=== PATIENT | male | born 1945 | race Caucasian/White ===

== ENCOUNTER 2016-12-19 10:20 | Observation (INO) | payer OTHER ==
[~2016-12-19] VITALS: Ht 172.7 cm; Wt 58.0 kg
[~2016-12-19 10:20] MED LIST: ASPI81TA45 PO; ATEN50 PO; CEFU1TAB43 PO; FOLI400T30 PO; LISI-360 PO; LORA1TAB PO; SINE25100 PO; TAB-TAB PO; VITA10002 PO; VITA20002 PO; [UNRECOGNIZED DRUG - CODE] PO
[2016-12-19 10:23] VITALS: BP 143/88; PULSE 129; RESP 20; TEMP 97.5; O2SAT 89
--- NOTE | 2016-12-19 11:12 | PD ---
HPI Chief Complaint: GI Complaint Time Seen by Provider: 11:11 Travel History International Travel<30 days: No Contact w/Intl Traveler<30days: No Traveled to known affect area: No History of Present Illness HPI 71-year-old male with history of Parkinson's, hypertension, on Coumadin for history of blood clots, presents to the emergency department for evaluation of nausea and vomiting 1 week. Patient has been unable to keep anything down. He has an appointment in 2 days with his primary care provider but has become so weak, his daughter did not want to wait. Patient has felt febrile and chills. He has had a cough with chest congestion. Denies any significant pain. Continues to dry heave constantly. Daughter informs me that he has been having difficulty swallowing which is being worked up outpatient. Patient has had diarrhea today. Nonbloody, no black tarry stools. PFSH Past Medical History Hx Anticoagulant Therapy: Yes Cancer: No Cardiovascular Problems: Yes Cerebrovascular Accident: Yes (TIA) Diabetes: No Endocrine: No Genitourinary: No Hiatal Hernia: No Hypertension: Yes Immune Disorder: No Musculoskeletal: No Neurologic: Yes Psychiatric: No Reproductive: No Respiratory: No Thyroid Disease: No Past Surgical History Abdominal Surgery: Yes (PARTIAL GASTRECTOMY / HERNIA REPAIR) Social History Alcohol Use: Yes (BEER DAILY) Tobacco Use: Yes (QUIT 30 YEARS) Substance Use: No Allergies-Medications (Allergen,Severity, Reaction): Coded Allergies: No Known Allergies (Verified , 12/19/16) Reported Meds & Prescriptions Reported Meds & Active Scripts Active Ceftin 500 Mg Tab (Cefuroxime Axetil) 500 Mg Tab 500 Mg PO Q12HR 30 Days Tenormin 50 Mg Tab (Atenolol) 50 Mg Tab 50 Mg PO DAILY 30 Days Reported Lisinopril 10 mg (Lisinopril) 10 Mg Tab 1 Tab PO DAILY Sinemet 25/100 (Carbidopa/Levodopa) 1 Tab Tab 1 Tab PO TID Lorazepam 1 Mg Tab 1 Mg PO BID Folate (Folic Acid) 400 Mcg Tab 400 Mcg PO DAILY Vitamin D-3 (Cholecalciferol) 2 000 Tab 2,000 Unit PO DAILY Vitamin B12 (Cyanocobalamin) 1,000 Mcg Tab 1,000 Mcg PO DAILY Fish Oil Extra Strength (Fish Oil) 435 Mg Cap 435 Mg PO Aspirin 81 mg EC Lo-Dose (Aspirin) 81 Mg Tab 81 Mg PO DAILY Multivitamin (Multivitamins) 1 Tab Tab 1 Tab PO DAILY Review of Systems Except as stated in HPI: all other systems reviewed are Neg Physical Exam Narrative GENERAL: Well-nourished male patient, appears ill but without distress. Patient is also tremulous. SKIN: Warm and dry. HEAD: Atraumatic. Normocephalic. EYES: Pupils equal and round. No scleral icterus. No injection or drainage. ENT: No nasal bleeding or discharge. Mucous membranes pink and moist. NECK: Trachea midline. No JVD. CARDIOVASCULAR: Tachycardic rate and rhythm. No murmur appreciated. RESPIRATORY: No accessory muscle use. Diminished, possibly due to poor inspiratory effort. Breath sounds equal bilaterally. GASTROINTESTINAL: Abdomen soft, non-tender, nondistended. Hepatic and splenic margins not palpable. MUSCULOSKELETAL: No obvious deformities. No clubbing. No cyanosis. No edema. NEUROLOGICAL: Awake and alert. No obvious cranial nerve deficits. Motor grossly within normal limits. Delayed responses, clear with simple answers. PSYCHIATRIC: Appropriate mood and affect; insight and judgment normal. Data Data Last Documented VS Vital Signs Date Time Temp Pulse Resp B/P Pulse Ox O2 Delivery O2 Flow Rate FiO2 12/19/16 10:23 97.5 129 20 143/88 89 Room Air Orders Complete Blood Count With Diff (12/19/16 11:09) Comprehensive Metabolic Panel (12/19/16 11:09) Lipase (12/19/16 11:09) Lactic Acid (12/19/16 11:09) Prothrombin Time / Inr (Pt) (12/19/16 11:09) Act Partial Throm Time (Ptt) (12/19/16 11:09) Urinalysis - C+S If Indicated (12/19/16 11:09) Electrocardiogram (12/19/16 11:09) Lactic Acid Sepsis Protocol (12/19/16 11:09) Ckmb (Isoenzyme) Profile (12/19/16 11:09) Troponin I (12/19/16 11:09) Influenzae A/B Antigen (12/19/16 11:09) Blood Culture (12/19/16 11:09) Chest, Single Ap (12/19/16 11:09) Ondansetron Odt (Zofran Odt) (12/19/16 11:15) Ct Abd/Pel W Iv Contrast(Rout) (12/19/16 11:57) Sodium Chlor 0.9% 1000 Ml Inj (Ns 1000 M (12/19/16 11:57) Sodium Chlor 0.9% 1000 Ml Inj (Ns 1000 M (12/19/16 11:57) Ct Pulmonary Angiogram (12/19/16 12:02) Labs Laboratory Tests Test 12/19/16 12:00 White Blood Count 10.5 TH/MM3 Red Blood Count 5.76 MIL/MM3 Hemoglobin 18.8 GM/DL Hematocrit 54.9 % Mean Corpuscular Volume 95.4 FL Mean Corpuscular Hemoglobin 32.6 PG Mean Corpuscular Hemoglobin 34.2 % Concent Red Cell Distribution Width 15.4 % Platelet Count 141 TH/MM3 Mean Platelet Volume 8.6 FL Neutrophils (%) (Auto) 86.2 % Lymphocytes (%) (Auto) 6.1 % Monocytes (%) (Auto) 6.4 % Eosinophils (%) (Auto) 0.8 % Basophils (%) (Auto) 0.5 % Neutrophils # (Auto) 9.0 TH/MM3 Lymphocytes # (Auto) 0.6 TH/MM3 Monocytes # (Auto) 0.7 TH/MM3 Eosinophils # (Auto) 0.1 TH/MM3 Basophils # (Auto) 0.1 TH/MM3 CBC Comment DIFF FINAL Differential Comment MDM Medical Decision Making Medical Screen Exam Complete: Yes Emergency Medical Condition: Yes Medical Record Reviewed: Yes Differential Diagnosis Pneumonia versus gastroenteritis versus electrolyte abnormality versus sepsis Narrative Course 71-year-old male presents to the emergency department for evaluation. Workup is initiated in triage ambulance. Once a medical bed becomes available, patient will be transferred and care assumed by that provider. Condition: Stable Trinh Cabrera Dec 19, 2016 11:12
[2016-12-19] MEDS ORDERED: ONDANSETRON ODT 4 MG TAB PO ONE (11:15)
[2016-12-19] MEDS ORDERED: SODIUM CHLOR 0.9% 1000 ML INJ 1,000 ML IV SCH ×3 (11:57→15:11)
--- NOTE | 2016-12-19 11:59 | PD ---
Physical Exam Time Seen by Provider: 11:59 Narrative Patient initially seen by provider in triage who initiated workup. 71-year-old male with a history of hypertension, Parkinson's, TIA, DVT on Xarelto presents to the emergency department for evaluation of vomiting for one week. The patient states that he has been unable to swallow food for several months now feeling as though the food gets stuck in his throat. States that he is able to keep fluids down and food the consistency of applesauce. States that for the past week though he has had nausea and vomiting anytime he tries to eat food. States that he has had a slightly productive cough and shortness of breath for the past 3 days. He denies any known events of aspiration or choking. He denies fever, chills, chest pain, abdominal pain, diarrhea, constipation, bloody stool, dysuria, lightheadedness or dizziness. Prior abdominal surgeries include gastrectomy secondary to PUD with subsequent hernia repair. PCP is Dr. Mehta with [facility]. No other complaints. GENERAL: Well-nourished and well-developed frail elderly male patient in no acute distress. SKIN: Warm and dry. HEAD: Normocephalic and atraumatic. EYES: No injection, drainage, or hyphema noted. PERRLA. EOMI. ENT: No nasal drainage noted. Oropharynx is clear. NECK: Supple and the trachea is midline. CARDIOVASCULAR: Regular rate and rhythm. RESPIRATORY: Breath sounds are equal bilaterally with no accessory muscle use, wheezing, rhonchi, or crackles. GASTROINTESTINAL: Epigastric midline surgical scar. Abdomen is soft, non-tender , and nondistended. MUSCULOSKELETAL: No obvious deformities, swelling, cyanosis, or ecchymosis is present throughout the upper and lower extremities. Patient has full range of motion without any signs of neurovascular compromise. NEUROLOGICAL: Awake, alert, and oriented. Normal speech and gait. Cranial nerves are grossly intact. Data Data Last Documented VS Vital Signs Date Time Temp Pulse Resp B/P Pulse Ox O2 Delivery O2 Flow Rate FiO2 12/19/16 14:21 109 20 180/99 99 Nasal Cannula 2 12/19/16 10:23 97.5 Orders Complete Blood Count With Diff (12/19/16 11:09) Comprehensive Metabolic Panel (12/19/16 11:09) Lipase (12/19/16 11:09) Prothrombin Time / Inr (Pt) (12/19/16 11:09) Act Partial Throm Time (Ptt) (12/19/16 11:09) Urinalysis - C+S If Indicated (12/19/16 11:09) Electrocardiogram (12/19/16 11:09) Lactic Acid Sepsis Protocol (12/19/16 11:09) Ckmb (Isoenzyme) Profile (12/19/16 11:09) Troponin I (12/19/16 11:09) Influenzae A/B Antigen (12/19/16 11:09) Blood Culture (12/19/16 11:09) Chest, Single Ap (12/19/16 11:09) Ondansetron Odt (Zofran Odt) (12/19/16 11:15) Ct Abd/Pel W Iv Contrast(Rout) (12/19/16 11:57) Sodium Chlor 0.9% 1000 Ml Inj (Ns 1000 M (12/19/16 11:57) Sodium Chlor 0.9% 1000 Ml Inj (Ns 1000 M (12/19/16 11:57) Ct Pulmonary Angiogram (12/19/16 12:02) Vancomycin Inj (Vancomycin Inj) (12/19/16 13:05) Piperacil-Tazo 4.5 Gm Premix (Zosyn 4.5 (12/19/16 13:05) Arterial Blood Gas (Abg) (12/19/16 ) Iohexol 350 Inj (Omnipaque 350 Inj) (12/19/16 14:14) Sodium Chlor 0.9% 1000 Ml Inj (Ns 1000 M (12/19/16 15:11) Admit Order (Ed Use Only) (12/19/16 15:28) Labs Laboratory Tests Test 12/19/16 12/19/16 12/19/16 12:00 12:20 13:40 White Blood Count 10.5 TH/MM3 Red Blood Count 5.76 MIL/MM3 Hemoglobin 18.8 GM/DL Hematocrit 54.9 % Mean Corpuscular Volume 95.4 FL Mean Corpuscular Hemoglobin 32.6 PG Mean Corpuscular Hemoglobin 34.2 % Concent Red Cell Distribution Width 15.4 % Platelet Count 141 TH/MM3 Mean Platelet Volume 8.6 FL Neutrophils (%) (Auto) 86.2 % Lymphocytes (%) (Auto) 6.1 % Monocytes (%) (Auto) 6.4 % Eosinophils (%) (Auto) 0.8 % Basophils (%) (Auto) 0.5 % Neutrophils # (Auto) 9.0 TH/MM3 Lymphocytes # (Auto) 0.6 TH/MM3 Monocytes # (Auto) 0.7 TH/MM3 Eosinophils # (Auto) 0.1 TH/MM3 Basophils # (Auto) 0.1 TH/MM3 CBC Comment DIFF FINAL Differential Comment Prothrombin Time 12.0 SEC Prothromb Time International 1.1 RATIO Ratio Activated Partial 33.1 SEC Thromboplast Time Sodium Level 131 MEQ/L Potassium Level 4.6 MEQ/L Chloride Level 96 MEQ/L Carbon Dioxide Level 23.1 MEQ/L Anion Gap 12 MEQ/L Blood Urea Nitrogen 6 MG/DL Creatinine 1.34 MG/DL Estimat Glomerular Filtration 53 ML/MIN Rate Random Glucose 113 MG/DL Lactic Acid Level 4.6 mmol/L Calcium Level 8.7 MG/DL Total Bilirubin 1.2 MG/DL Aspartate Amino Transf 57 U/L (AST/SGOT) Alanine Aminotransferase 21 U/L (ALT/SGPT) Alkaline Phosphatase 147 U/L Total Creatine Kinase 88 U/L Troponin I LESS THAN 0.02 NG/ML Total Protein 7.1 GM/DL Albumin 2.8 GM/DL Lipase 125 U/L Urine Color YELLOW Urine Turbidity CLEAR Urine pH 6.0 Urine Specific [place] 1.009 Urine Protein NEG mg/dL Urine Glucose (UA) NEG mg/dL Urine Ketones NEG mg/dL Urine Occult Blood NEG Urine Nitrite NEG Urine Bilirubin NEG Urine Urobilinogen LESS THAN 2.0 MG/DL Urine Leukocyte Esterase NEG Urine RBC LESS THAN 1 /hpf Urine WBC LESS THAN 1 /hpf Urine Hyaline Casts 13 /lpf Microscopic Urinalysis Comment CULT NOT INDICATED Blood Gas Puncture Site LT RADIAL Blood Gas Patient Temperature 98.6 Blood Gas HCO3 23 mmol/L Blood Gas Base Excess -0.5 mmol/L Blood Gas Oxygen Saturation 89 % Arterial Blood pH 7.46 Arterial Blood Partial 32 mmHg Pressure CO2 Arterial Blood Partial 62 mmHG Pressure O2 Arterial Blood Oxygen Content 21.7 Vol % Arterial Blood 1.7 % Carboxyhemoglobin Arterial Blood Methemoglobin 1.6 % Blood Gas Hemoglobin 17.3 G/DL Blood Gas Inspired Oxygen 21 % [facility] Medical Record Reviewed: Yes Supervised Visit with PRASHANT: No Differential Diagnosis Aspiration pneumonia versus PE versus colitis versus obstruction versus sepsis Narrative Course 71-year-old male presents to the emergency department for evaluation of vomiting for one week. Patient is afebrile. He is tachycardic with heart rate of 129 beats per minute. Since saturation is 89% on room air. Patient was initially seen by provider in triage who initiated labs and imaging. IV access is obtained, patient is placed on monitoring coordinator. EKG shows sinus tachycardia with first-degree AV block, no acute ST elevations or depressions. Patient is given a liter of fluid. CT of the abdomen and pelvis and CT pulmonary angiogram have been ordered and are pending. CBC shows slightly elevated hemoglobin and hematocrit, otherwise unremarkable. Coags are unremarkable. Urinalysis unremarkable. Influenza swab is negative. CMP shows mild renal insufficiency with a creatinine of 1.34, GFR 53, BUN 6. This is slightly elevated from the patient's baseline, last labs were one year ago. Total bilirubin is slightly elevated at 1.2, AST and alkaline phosphatase are slightly elevated as well. Troponin is less than 0.02. Lactic acid is elevated at 4.6 Chest x-ray is negative for any Abnormalities. CT of the abdomen and pelvis with IV contrast shows hepatic steatosis but is otherwise unremarkable for any acute abnormalities. CT pulmonary angiogram is negative for PE, shows small hiatal hernia, no acute abnormalities. Patient has been given 2 L of IV fluid with Zosyn and vancomycin empirically. Imaging is unremarkable. Lactic acidosis likely secondary to dehydration. Patient will be admitted for IV hydration. I discussed the case with my attending physician Dr. Bradley who is aware of the patients history, physical examination findings, and treatment plan. Physician Communication Physician Communication My attending physician Dr. Bradley spoke with Dr. Valadez [facility] who agrees to admit the patient under observation. Diagnosis Primary Impression: Lactic acidosis Additional Impressions: Dehydration, moderate Vomiting Qualified Code: R11.2 - Non-intractable vomiting with nausea, unspecified vomiting type Admitting Information Admitting Physician Requests: Observation Condition: Stable Elysia Rojo Dec 19, 2016 11:59
[2016-12-19 12:26] LABS: BASOPHIL # 0.1 TH/MM3 (0-0.2); BASOPHIL % 0.5 % (0.0-2.0); EOSINOPHIL # 0.1 TH/MM3 (0-0.4); EOSINOPHIL % 0.8 % (0.0-4.0); HEMATOCRIT 54.9 % (39.0-51.0); HEMO FLAGS DIFF FINAL; LYMPH % 6.1 % (9.0-44.0); LYMPHOCYTE # 0.6 TH/MM3 (1.0-4.8); MEAN CELL VOLUME 95.4 FL (80.0-100.0); MEAN CORPUSCULAR HEMOGLOBIN 32.6 PG (27.0-34.0); MEAN CORPUSCULAR HGB CONC 34.2 % (32.0-36.0); MONO % 6.4 % (0.0-8.0); NEUT % 86.2 % (16.0-70.0); PLATELET COUNT 141 TH/MM3 (150-450); RED BLOOD COUNT 5.76 MIL/MM3 (4.50-5.90); RED CELL DISTRIBUTION WIDTH 15.4 % (11.6-17.2); WHITE BLOOD COUNT 10.5 TH/MM3 (4.0-11.0)
[2016-12-19 12:36] LABS: APTT (PATIENT) 33.1 SEC (24.3-30.1); INTERNATIONAL NORMALIZED RATIO 1.1 RATIO
[2016-12-19 12:37] VITALS: BP 155/103; PULSE 110; RESP 20; O2SAT 95
[2016-12-19 12:42] LABS: BLOOD, URINE NEG (NEG); COMMENT (UR) CULT NOT INDICATED; CULTURE IF INDICATED CULT NOT INDICATED; GLUCOSE,URINE NEG (NEG); HYALINE CAST, URINE 13 /lpf (RARE); KETONE, URINE NEG (NEG); NITRITE,URINE NEG (NEG); URINE COLOR YELLOW (YELLW/STRAW)
[2016-12-19 12:47] LABS: ANION GAP 12 MEQ/L (5-15)
[2016-12-19 12:48] LABS: ALKALINE PHOSPHATASE 147 U/L (45-117); ALT (GPT) 21 U/L (12-78); AST (GOT) 57 U/L (15-37); BICARBONATE 23.1 MEQ/L (21.0-32.0); BLOOD UREA NITROGEN 6 MG/DL (7-18); CHLORIDE 96 MEQ/L (98-107); GLOMERULAR FILTRATION RATE 53 ML/MIN (>89); POTASSIUM 4.6 MEQ/L (3.5-5.1); SODIUM (NA) 131 MEQ/L (136-145); TOTAL BILIRUBIN ADULT 1.2 MG/DL (0.2-1.0)
[2016-12-19 12:57] LABS: CREATINE KINASE 88 U/L (39-308)
[2016-12-19] MEDS ORDERED: HYDR10TA23 PO (13:02)
[2016-12-19] MEDS ORDERED: XARE15TA PO (13:02)
[2016-12-19] MEDS ORDERED: CARB25TA9 PO (13:02)
[2016-12-19] MEDS ORDERED: CHOL100025 PO (13:02)
[2016-12-19] MEDS ORDERED: ATEN100T PO (13:02)
[2016-12-19] MEDS ORDERED: AMLO5TAB2 PO (13:02)
[2016-12-19] MEDS ORDERED: VITA10002 PO (13:02)
[2016-12-19] MEDS ORDERED: FOLI400T PO (13:02)
[2016-12-19] MEDS ORDERED: POTA-163 PO (13:02)
[2016-12-19] MEDS ORDERED: LOSA25TA PO (13:02)
[2016-12-19] MEDS ORDERED: VANCOMYCIN INJ 1,000 MG in SODIUM CHLOR 0.9% 250 ML INJ 250 ML IV STA (13:05)
[2016-12-19] MEDS ORDERED: PIPERACIL-TAZO 4.5 GM PREMIX 100 ML IV STA (13:05)
--- NOTE | 2016-12-19 13:31 | RADRPT ---
EXAM DATE/TIME: 12/19/2016 13:02 [facility] COMPARISON: CHEST SINGLE AP, January 08, 2016, 15:56. INDICATIONS : Upper chest pains mid sternal, with nausea and vomiting. Dysphagia. MEDICAL HISTORY : None. SURGICAL HISTORY : None. ENCOUNTER: Initial ACUITY: 3 days PAIN SCORE: 6/10 LOCATION: Bilateral chest FINDINGS: A single view of the chest demonstrates the lungs to be symmetrically aerated without evidence of mas s, infiltrate or effusion. The cardiomediastinal contours are unremarkable. Osseous structures are intact. CONCLUSION: No acute disease. Salvador Eric Jr., MD on December 19, 2016 at 13:29 Board Certified Radiologist. This report was verified electronically.
[2016-12-19 13:48] LABS: BLOOD GAS BASE EXCESS -0.5 mmol/L (-2-2); BLOOD GAS CARBOXYHEMOGLOBIN 1.7 % (0-4); BLOOD GAS HCO3 23 mmol/L (22-26); BLOOD GAS METHEMOGLOBIN 1.6 % (0-2); BLOOD GAS O2 HGB SATURATION 89 % (90-100); BLOOD GAS OXYGEN CONTENT 21.7 Vol % (12.0-20.0); BLOOD GAS PCO2 32 mmHg (38-42); BLOOD GAS PO2 62 mmHG (61-120); BLOOD GAS TOTAL HGB 17.3 G/DL (12.0-16.0); TEMP CORR TO 98.6
[2016-12-19 13:49] LABS: CRITICAL VALUE YES; DRAW SITE LT RADIAL; FIO2 21 %; NUMBER OF ARTERIAL PUNCTURES 1; STAT YES; ULNAR PULSE PRESENT
[2016-12-19 14:12] LABS: LACTIC ACID GHOST NOT REPORTABLE
[2016-12-19] MEDS ORDERED: IOHEXOL 350 MG/ML 10 ML VIAL (for RAD DIAG) IV ONE (14:14)
[2016-12-19 14:21] VITALS: BP 180/99; PULSE 109; RESP 20; O2SAT 99
--- NOTE | 2016-12-19 14:41 | RADRPT ---
EXAM DATE/TIME: 12/19/2016 13:52 [facility] COMPARISON: No previous studies available for comparison. INDICATIONS : Abdomen pain and vomiting. IV CONTRAST: 75 cc Omnipaque 350 (iohexol) IV ; Cumulative dose for multiple exams. ORAL CONTRAST: No oral contrast ingested. RADIATION DOSE: 7.75 CTDIvol (mGy) MEDICAL HISTORY : Parkinson's. Hypertension. SURGICAL HISTORY : None. ENCOUNTER: Initial ACUITY: 3 days PAIN SCALE: 5/10 LOCATION: abdomen TECHNIQUE: Volumetric scanning of the abdomen and pelvis was performed. Using automated exposure control and ad justment of the mA and/or kV according to patient size, radiation dose was kept as low as reasonably achievable to obtain optimal diagnostic quality images. FINDINGS: LOWER LUNGS: The visualized lower lungs are clear. LIVER: Homogeneous low in density without lesion. There is no dilation of the biliary tree. No calcified g allstones. SPLEEN: Normal size without lesion. Scattered granulomatous calcifications. PANCREAS: Within normal limits. KIDNEYS: Normal in size and shape. There is no mass, stone or hydronephrosis. Tiny cysts bilaterally. ADRENAL GLANDS: Within normal limits. VASCULAR: There is no aortic aneurysm. BOWEL/MESENTERY: Surgical clips associated with the stomach. The stomach, small bowel, and colon demonstrate no acute abnormality. There is no free intraperitoneal air or fluid. ABDOMINAL WALL: Within normal limits. RETROPERITONEUM: There is no lymphadenopathy. BLADDER: No wall thickening or mass. REPRODUCTIVE: Within normal limits. INGUINAL: There is no lymphadenopathy or hernia. Prior left inguinal hernia repair utilizing mesh. MUSCULOSKELETAL: Scoliotic curvature. CONCLUSION: 1. No acute abnormality. 2. Hepatic steatosis. Salvador Eric Jr., MD on December 19, 2016 at 14:27 Board Certified Radiologist. This report was verified electronically.
--- NOTE | 2016-12-19 14:58 | RADRPT ---
EXAM DATE/TIME: 12/19/2016 14:14 [facility] COMPARISON: CHEST SINGLE AP, December 19, 2016, 13:02. INDICATIONS : Evaluate for emboli. IV CONTRAST: 75 cc Omnipaque 350 (iohexol) IV ; Cumulative dose for multiple exams. RADIATION DOSE: 7.4 CTDIvol (mGy) MEDICAL HISTORY : Deep venous thrombosis. Parkinsons. Hypertension. SURGICAL HISTORY : None. ENCOUNTER: Initial ACUITY: 1 day PAIN SCALE: 5/10 LOCATION: Bilateral chest TECHNIQUE: Volumetric scanning of the chest was performed using a pulmonary embolism protocol MIP images were re constructed. Using automated exposure control and adjustment of the mA and/or kV according to patien t size, radiation dose was kept as low as reasonably achievable to obtain optimal diagnostic quality images. FINDINGS: PULMONARY ARTERIES: No filling defects are seen in the pulmonary arteries through the segmental level. LUNGS: There is no consolidation or pneumothorax . No concerning pulmonary nodule is visualized. PLEURAE: There is no pleural thickening or pleural effusion. MEDIASTINUM: There is good visualization of the great vessels of the middle mediastinum. No evidence of mediastin al or hilar adenopathy/mass. Surgical clips around the fundus and body of the stomach extending into the distal mediastinum with a small hiatal hernia. MUSCULOSKELETAL: Within normal limits for patient age. MISCELLANEOUS: The visualized upper abdominal organs demonstrate no acute abnormality. CONCLUSION: Negative for pulmonary embolization. No acute cardiopulmonary process. Evidence of previous surgery in the upper abdomen arou nd the stomach and in the caudad lower mediastinum with a small hiatal hernia Chico Reeder MD on December 19, 2016 at 14:52 Board Certified Radiologist. This report was verified electronically.
[2016-12-19] MEDS ORDERED: ACETAMINOPHEN 325 MG TAB PO PRN ×2 (15:30)
[2016-12-19] MEDS ORDERED: SODIUM CHLORIDE 0.9% FLUSH 5 ML FLUSH FLUSH PRN (15:30)
[2016-12-19] MEDS ORDERED: NALOXONE HCL 0.4 MG/ML AMP IV PRN (15:30)
--- NOTE | 2016-12-19 15:32 | HHI.HP ---
[facility]ician Juan Carlos Bullock MD Admission Diagnosis lactic acidosis, hypovolemia Diagnoses: (1) Dehydration, moderate (2) Lactic acidosis (3) HTN (hypertension) (4) Parkinson disease (5) Essential tremor (6) Intractable nausea and vomiting (7) Dysphagia Chief Complaint: Intractable nausea and vomiting along with dysphagia of solid food Travel History International Travel<30 Days: No Contact w/Intl Traveler <30 Da: No Traveled to Known Affected Are: No History of Present Illness 71-year-old male with a history of hypertension, Parkinson disease, to the ED for evaluation of 1 week history of mostly emesis with nausea along with decreased appetite, as well as dysphagia of solid food over the past 3 months without any chest pain. However patient complains of shortness of breath. Patient reported also a history of diarrhea on and off however resolved over the past 2 days. He has had significant weight loss along with worsening weakness. Apparently, patient has an appointment with his PCP in 2 days but was feeling too weak, he was then brought to the ED by his daughter however wasn't present during this encounter. In the EMR it's noted that patient mentioned about febrile episodes but his vitals currently at stable. He was treated with Zosyn and vancomycin IV 1. CT abdomen/pelvis negative and a CTA was negative for PE. He denies any GI bleed. Review of Systems Other Other 12 systems reviewed and are negative except for the one mentioned in history of present illness Past Family Social History Past Medical History Hypertension, TIA x3 Parkinson's disease Past Surgical History Partial gastrectomy/hernia repair Allergies: Coded Allergies: No Known Allergies (Verified , 12/19/16) Physical Exam Vital Signs Vital Signs Date Time Temp Pulse Resp B/P Pulse Ox O2 Delivery O2 Flow Rate FiO2 12/19/16 14:21 109 20 180/99 99 Nasal Cannula 2 12/19/16 12:37 110 20 155/103 95 Room Air 12/19/16 10:23 97.5 129 20 143/88 89 Room Air Physical Exam GENERAL: This is a well-nourished, well-developed patient, in no apparent distress with essential tremors. SKIN: No rashes, ecchymoses or lesions. Cool and dry. HEAD: Atraumatic. Normocephalic. No temporal or scalp tenderness. EYES: Pupils equal round and reactive. Extraocular motions intact. No scleral icterus. No injection or drainage. ENT: Nose without bleeding, purulent drainage or septal hematoma. Throat without erythema, tonsillar hypertrophy or exudate. Uvula midline. Airway patent. NECK: Trachea midline. No JVD or lymphadenopathy. Supple, nontender, no meningeal signs. CARDIOVASCULAR: Regular rate and rhythm without murmurs, gallops, or rubs. RESPIRATORY: Clear to auscultation. Breath sounds equal bilaterally. No wheezes , rales, or rhonchi. GASTROINTESTINAL: Abdomen soft, non-tender, nondistended. No hepato-splenomegaly , or palpable masses. No guarding. MUSCULOSKELETAL: Extremities without clubbing, cyanosis, or edema. No joint tenderness, effusion, or edema noted. No calf tenderness. Negative Homans sign bilaterally. NEUROLOGICAL: Awake and alert. Cranial nerves II through XII intact. Motor and sensory grossly within normal limits. Five out of 5 muscle strength in all muscle groups. Normal speech. Laboratory Laboratory Tests Test 12/19/16 12/19/16 12/19/16 12:00 12:20 13:40 White Blood Count 10.5 Red Blood Count 5.76 Hemoglobin 18.8 Hematocrit 54.9 Mean Corpuscular Volume 95.4 Mean Corpuscular Hemoglobin 32.6 Mean Corpuscular Hemoglobin 34.2 Concent Red Cell Distribution Width 15.4 Platelet Count 141 Mean Platelet Volume 8.6 Neutrophils (%) (Auto) 86.2 Lymphocytes (%) (Auto) 6.1 Monocytes (%) (Auto) 6.4 Eosinophils (%) (Auto) 0.8 Basophils (%) (Auto) 0.5 Neutrophils # (Auto) 9.0 Lymphocytes # (Auto) 0.6 Monocytes # (Auto) 0.7 Eosinophils # (Auto) 0.1 Basophils # (Auto) 0.1 CBC Comment DIFF FINAL Differential Comment Prothrombin Time 12.0 Prothromb Time International 1.1 Ratio Activated Partial 33.1 Thromboplast Time Sodium Level 131 Potassium Level 4.6 Chloride Level 96 Carbon Dioxide Level 23.1 Anion Gap 12 Blood Urea Nitrogen 6 Creatinine 1.34 Estimat Glomerular Filtration 53 Rate Random Glucose 113 Lactic Acid Level 4.6 Calcium Level 8.7 Total Bilirubin 1.2 Aspartate Amino Transf 57 (AST/SGOT) Alanine Aminotransferase 21 (ALT/SGPT) Alkaline Phosphatase 147 Total Creatine Kinase 88 Troponin I LESS THAN 0.02 Total Protein 7.1 Albumin 2.8 Lipase 125 Urine Color YELLOW Urine Turbidity CLEAR Urine pH 6.0 Urine Specific [place] 1.009 Urine Protein NEG Urine Glucose (UA) NEG Urine Ketones NEG Urine Occult Blood NEG Urine Nitrite NEG Urine Bilirubin NEG Urine Urobilinogen LESS THAN 2.0 Urine Leukocyte Esterase NEG Urine RBC LESS THAN 1 Urine WBC LESS THAN 1 Urine Hyaline Casts 13 Microscopic Urinalysis Comment CULT NOT INDICATED Blood Gas Puncture Site LT RADIAL Blood Gas Patient Temperature 98.6 Blood Gas HCO3 23 Blood Gas Base Excess -0.5 Blood Gas Oxygen Saturation 89 Arterial Blood pH 7.46 Arterial Blood Partial 32 Pressure CO2 Arterial Blood Partial 62 Pressure O2 Arterial Blood Oxygen Content 21.7 Arterial Blood 1.7 Carboxyhemoglobin Arterial Blood Methemoglobin 1.6 Blood Gas Hemoglobin 17.3 Blood Gas Inspired Oxygen 21 Date/Time Procedure Status Source Growth 12/19/16 12:10 Aerobic Blood Culture Received Blood Peripheral Pending 12/19/16 12:10 Anaerobic Blood Culture Received Blood Peripheral Pending 12/19/16 12:00 Influenza Types A,B Antigen (LUISA) - Final Complete Nasal Washing NEGATIVE FOR FLU A AND B ANTIGEN.... Result Diagram: 12/19/16 1200 12/19/[address] Angiography 12/19/16 1202 Signed Impressions: Service Date/Time: Monday, December 19, 2016 14:14 - CONCLUSION: Negative for pulmonary embolization. No acute cardiopulmonary process. Evidence of previous surgery in the upper abdomen around the stomach and in the caudad lower mediastinum with a small hiatal hernia Chico Reeder MD Abdomen/Pelvis CT 12/19/16 1157 Signed Impressions: Service Date/Time: Monday, December 19, 2016 13:52 - CONCLUSION: 1. No acute abnormality. 2. Hepatic steatosis. Salvador Eric Jr., MD Chest X-Ray 12/19/16 1109 Signed Impressions: Service Date/Time: Monday, December 19, 2016 13:02 - CONCLUSION: No acute disease. Salvador Eric Jr., MD Assessment and Plan Problem List: (1) Dysphagia ICD Code: R13.10 Status: Acute (2) Intractable nausea and vomiting ICD Code: R11.2 Status: Acute (3) Dehydration, moderate ICD Code: E86.0 Status: Acute (4) Lactic acidosis ICD Code: E87.2 Status: Acute (5) Parkinson disease ICD Code: G20 Status: Acute Assessment and Plan 71-year-old male with 1-Dysphagia of solid food: Likely secondary to Parkinson's however will check upper GI with small bowel follow-through and consult speech therapy for swallow eval. CT abdomen/pelvis noted and reviewed by me with only finding of Hiatal hernia otherwise negative. Chest x-ray noted and reviewed by me without any cardiac pulmonary disease. Keep nothing by mouth, IV fluid hydration. Patient will likely need GI consultation based on upper GI with small bowel follow- through. Eventually a need for PEG tube placement will have to be discussed with patient 2-Intractable emesis and nausea: May be secondary to gastroenteritis however patient denies any diarrheal episodes 2 days despite reporting on and off diarrhea. Check lipase, stool for ova and parasite, C. difficile PCR. Conservative treatment with IV fluid, anti-emetics. Advance diet as tolerated 3-Dehydration: Start gentle IV fluid hydration 4-Lactic acidosis: Patient treated in ED with IV antibiotic Zosyn and vancomycin 1, however acidosis appeared to be secondary to dehydration therefore will hold on continue antibiotics. Repeat lab 5-Hemoconcentration: Secondary to dehydration, monitor BUN and creatinine 6-Mildly elevated liver enzyme AST: Monitor LFTs 7-Parkinson's disease: Resume outpatient medications 8-Benign labile hypertension: Resume atenolol 100 mg daily now hydralazine 10 mg twice a day. Will resume Norvasc and Cozaar in a.m. 9-History of DVT: Resume Xarelto 10-GI prophylaxis: PPI Desmond Valadez MD Dec 19, 2016 15:32
[2016-12-19] MEDS ORDERED: MAGNESIUM CITRATE SOLN 300 ML BTL PO ONE ×2 (17:00→22:00)
[2016-12-19] MEDS: ATENOLOL 100 MG TAB PO SCH (17:01)
[2016-12-19 18:25] VITALS: BP 174/109; PULSE 73; RESP 20; O2SAT 95
[2016-12-19] MEDS: BISACODYL EC 5 MG TABEC PO SCH ×2 (18:27→22:10)
[2016-12-19] MEDS: SODIUM CHLOR 0.9% 1000 ML INJ 1,000 ML IV SCH (19:12)
[2016-12-19 20:03] VITALS: BP 169/123; PULSE 68; RESP 18; O2SAT 99
[2016-12-19] MEDS ORDERED: cloNIDine HCL 0.1 MG TAB PO PRN (20:15)
[2016-12-19 20:57] LABS: C. DIFF EPI 027 PRESUMPTIVE NEGATIVE (NEGATIVE); C. DIFF TOXIN PCR NEGATIVE (NEGATIVE)
[2016-12-19] MEDS: amLODIPine BESYLATE 5 MG TAB PO SCH (20:59)
[2016-12-19] MEDS: SODIUM CHLORIDE 0.9% FLUSH 5 ML FLUSH FLUSH SCH (21:00)
[2016-12-19 21:07] VITALS: BP 148/91; PULSE 65; RESP 16; O2SAT 98
[2016-12-19] MEDS: CARBIDOPA/LEVODOPA 25 MG/100 MG TAB PO SCH (22:10)
[2016-12-19] MEDS: hydrALAZINE HCL 10 MG TAB PO SCH (22:10)
[2016-12-20 01:21] VITALS: BP 117/64; PULSE 97; RESP 18; TEMP 98; O2SAT 97
[2016-12-20] MEDS: SODIUM CHLOR 0.9% 1000 ML INJ 1,000 ML IV SCH (01:29)
[2016-12-20 03:42] VITALS: BP 144/66; PULSE 88; RESP 18; TEMP 98; O2SAT 97
[2016-12-20] MEDS: CARBIDOPA/LEVODOPA 25 MG/100 MG TAB PO SCH ×2 (05:27→14:45)
[2016-12-20 07:38] LABS: AUTOMATED NEUTROPHIL # 3.3 TH/MM3 (1.8-7.7); BASOPHIL # 0.1 TH/MM3 (0-0.2); BASOPHIL % 1.2 % (0.0-2.0); EOSINOPHIL # 0.2 TH/MM3 (0-0.4); EOSINOPHIL % 3.6 % (0.0-4.0); HEMATOCRIT 46.2 % (39.0-51.0); HEMO FLAGS DIFF FINAL; LYMPH % 19.5 % (9.0-44.0); MEAN CORPUSCULAR HGB CONC 33.6 % (32.0-36.0); MONO % 13.4 % (0.0-8.0); NEUT % 62.3 % (16.0-70.0); PLATELET COUNT 102 TH/MM3 (150-450); RED BLOOD COUNT 4.72 MIL/MM3 (4.50-5.90); RED CELL DISTRIBUTION WIDTH 15.3 % (11.6-17.2); WHITE BLOOD COUNT 5.4 TH/MM3 (4.0-11.0)
[2016-12-20 08:06] VITALS: BP 142/84; PULSE 53; RESP 19; TEMP 97.7; O2SAT 97
[2016-12-20 08:07] LABS: ALKALINE PHOSPHATASE 110 U/L (45-117); ALT (GPT) 13 U/L (12-78); ANION GAP 11 MEQ/L (5-15); AST (GOT) 44 U/L (15-37); BICARBONATE 24.3 MEQ/L (21.0-32.0); BLOOD UREA NITROGEN 4 MG/DL (7-18); CHLORIDE 105 MEQ/L (98-107); GLOMERULAR FILTRATION RATE 83 ML/MIN (>89); POTASSIUM 3.1 MEQ/L (3.5-5.1); SODIUM (NA) 140 MEQ/L (136-145); TOTAL BILIRUBIN ADULT 0.9 MG/DL (0.2-1.0)
[2016-12-20] MEDS ORDERED: RIVAROXABAN 15 MG TAB PO SCH (09:00)
[2016-12-20] MEDS: SODIUM CHLORIDE 0.9% FLUSH 5 ML FLUSH FLUSH SCH (09:00)
[2016-12-20] MEDS ORDERED: PANTOPRAZOLE SODIUM 40 MG VIAL IV PUSH SCH (09:00)
[2016-12-20] MEDS: hydrALAZINE HCL 10 MG TAB PO SCH (09:00)
--- NOTE | 2016-12-20 10:28 | HHI.PR ---
Subjective Remarks Follow-up dysphagia of solid food/intractable nausea and vomiting 12/20/16-patient seen and examined; he reports improvement of nausea and emesis and denies any abdominal pain since admission. Vital currently stable. Objective Vitals Vital Signs Date Time Temp Pulse Resp B/P Pulse Ox O2 Delivery O2 Flow Rate FiO2 12/20/16 08:06 97.7 53 19 142/84 97 12/20/16 03:42 98.0 88 18 144/66 97 12/20/16 01:21 98.0 97 18 117/64 97 12/19/16 21:07 65 16 148/91 98 Nasal Cannula 2 12/19/16 20:03 68 18 169/123 99 Nasal Cannula 2 12/19/16 18:25 73 20 174/109 95 Nasal Cannula 2 12/19/16 14:21 109 20 180/99 99 Nasal Cannula 2 12/19/16 14:21 99 Nasal Cannula 2.00 12/19/16 12:37 110 20 155/103 95 Room Air I/O 12/19/16 12/19/16 12/19/16 12/20/16 12/20/16 12/20/16 07:00 15:00 23:00 07:00 15:00 23:00 Intake Total 240 ml Balance 240 ml Intake Oral 240 ml # Voids 1 2 # Bowel Movements 1 3 Result Diagram: 12/20/16 0612 12/20/[address] Angiography 12/19/16 1202 Signed Impressions: Service Date/Time: Monday, December 19, 2016 14:14 - CONCLUSION: Negative for pulmonary embolization. No acute cardiopulmonary process. Evidence of previous surgery in the upper abdomen around the stomach and in the caudad lower mediastinum with a small hiatal hernia Chico Reeder MD Abdomen/Pelvis CT 12/19/16 1157 Signed Impressions: Service Date/Time: Monday, December 19, 2016 13:52 - CONCLUSION: 1. No acute abnormality. 2. Hepatic steatosis. Salvador Eric Jr., MD Chest X-Ray 12/19/16 1109 Signed Impressions: Service Date/Time: Monday, December 19, 2016 13:02 - CONCLUSION: No acute disease. Salvador Eric Jr., MD Objective Remarks GENERAL: NAD SKIN: Warm and dry. HEAD: Normocephalic. EYES: No scleral icterus. No injection or drainage. NECK: Supple, trachea midline. No JVD or lymphadenopathy. CARDIOVASCULAR: Regular rate and rhythm without murmurs, gallops, or rubs. RESPIRATORY: Breath sounds equal bilaterally. No accessory muscle use. GASTROINTESTINAL: Abdomen soft, non-tender, nondistended. MUSCULOSKELETAL: No cyanosis, or edema. BACK: Nontender without obvious deformity. No CVA tenderness. A/P Problem List: (1) Dysphagia ICD Code: R13.10 Status: Acute (2) Intractable nausea and vomiting ICD Code: R11.2 Status: Acute (3) Dehydration, moderate ICD Code: E86.0 Status: Acute (4) Lactic acidosis ICD Code: E87.2 Status: Acute (5) Parkinson disease ICD Code: G20 Status: Acute Assessment and Plan 71-year-old male with 1-Dysphagia of solid food: Likely secondary to Parkinson's upper GI with small bowel follow-through pending this morning as well as speech therapy for swallow eval. CT abdomen/pelvis with only finding of Hiatal hernia otherwise negative. Chest x-ray without any cardiac pulmonary disease. Keep nothing by mouth, IV fluid hydration. Patient will likely need GI consultation based on upper GI with small bowel follow-through. Eventually a need for PEG tube placement in the future will have to be discussed with patient 2-Intractable emesis and nausea: Now resolved ;May be secondary to gastroenteritis however patient denies any diarrheal episodes 2 days despite reporting on and off diarrhea. lipase within normal limits, stool for ova and parasite pending, C. difficile PCR negative. Conservative treatment with IV fluid, anti-emetics. Advance diet as tolerated 3-Dehydration: Improving with gentle IV fluid hydration 4-Lactic acidosis: Patient treated in ED with IV antibiotic Zosyn and vancomycin 1, however acidosis appeared to be secondary to dehydration therefore will hold on continue antibiotics. Repeat lactic acid 2.3 5-Hemoconcentration: Secondary to dehydration, now resolved. 6-Mildly elevated liver enzyme AST: Monitor LFTs 7-Parkinson's disease: Continue outpatient medications. PT consult to treat and eval 8-Benign labile hypertension: Improving, continue atenolol 100 mg daily now hydralazine 10 mg twice a day. Continue to hold Norvasc and Cozaar . 9-History of DVT: On Xarelto 10-GI prophylaxis: PPI 11-Hypokalemia: Give potassium 60 mEq 1 now and monitor Pontey,Desmond MD Dec 20, 2016 10:27
[2016-12-20] MEDS ORDERED: POTASSIUM CL 40 MEQ/30 ML LIQ UDC PO ONE (10:30)
--- NOTE | 2016-12-20 13:42 | RADRPT ---
EXAM DATE/TIME: 12/20/2016 09:24 [facility] COMPARISON: No previous studies available for comparison. INDICATIONS : Obstruction, vomiting. FLUORO TIME: 1.4 minutes IMAGE COUNT: CONTRAST: Liquid E-Z Paque Barium Sulfate (60% w/v, 41% w/w) IMAGING TIME(S): 15 min, 30 min, 45 min, 1 hr, 1.5 hrs2 hr MEDICAL HISTORY : Ulcers. SURGICAL HISTORY : part of stomach removed years ago because of ulcers ENCOUNTER: Initial ACUITY: 1 day PAIN SCORE: 0/10 LOCATION: Bilateral abdomen FINDINGS: Surgical clips are noted in place in the upper abdomen. Esophagus is normal motility and structure ab domen small hiatal hernia and clips in place around the GE junction. Partial gastric resection of the body and antrum with anastomosis to the duodenum which is open and patent with no evidence of obstru ction or ulceration. Contrast is followed through the small bowel into the colon with Spot filming of the terminal which is normal an appendix visualized is normal. CONCLUSION: Prior surgery GE junction and stomach with partial gastric resection. Otherwise normal with no eviden ce of intrinsic or extrinsic lesion and small bowel is normal Chico Reeder MD on December 20, 2016 at 13:39 Board Certified Radiologist. This report was verified electronically.
--- NOTE | 2016-12-20 14:21 | HHI.FF ---
Face to Face Verification Diagnosis: (1) Parkinson disease (2) Essential tremor (3) Lactic acidosis (4) Dysphagia (5) Intractable nausea and vomiting Physical Therapy Order: Evaluate and Treat Home Health Nursing Order: Signs/symptoms of disease process I have seen patient Joann Le on 12/20/16. My clinical findings support the need for the requested home health care services because: Deconditioned w/ increased weakness I certify that my clinical findings support that this patient is homebound because: Poor cardiac reserve Desmond Valadez MD Dec 20, 2016 14:21
--- NOTE | 2016-12-20 14:23 | HHI.PR ---
Addendum to Inpatient Note Addendum Reason: Additional Documentation Additional Information Upper GI will small bowel follow-through was completed and read by me with finding of Prior surgery GE junction and stomach with partial gastric resection. Otherwise normal with no evidence of intrinsic or extrinsic lesion and small bowel is normal. Therefore patient will be discharged home with home health care on a full liquid diet which can subsequently be advanced. Discharge patient to home Condition on discharge: Improved Full liquid diet----->Regular Diet as tolerated Ad Paloma activity Rx written:none Follow-up with primary care physician in 1 week Desmond Valadez MD Dec 20, 2016 14:23
[2016-12-20] MEDS: amLODIPine BESYLATE 5 MG TAB PO SCH (14:45)
[2016-12-20] MEDS: ATENOLOL 100 MG TAB PO SCH (14:45)
[2016-12-20 15:44] VITALS: BP 148/81; PULSE 62; RESP 18; TEMP 97.7; O2SAT 96
--- NOTE | 2016-12-20 17:12 | EKG ---
Date Performed: 12/19/2016 Time Performed: 11:56:25 PTAGE: 71 years EKG: SINUS TACHYCARDIA WITH FIRST DEGREE AV BLOCK LOW QRS VOLTAGE IN EXTREMITY LEADS SEPTAL MYOC ARDIAL INFARCTION Baseline artifact. When compared to previous tracing, the patient is now Tachycardi c. ABNORMAL ECG PREVIOUS TRACING : 01/08/2016 15.17 DOCTOR: Lynda Jacob Interpretating Date/Time 12/20/2016 17:10:13
--- NOTE | 2016-12-20 17:12 | EKG ---
Date Performed: 12/19/2016 Time Performed: 15:11:58 PTAGE: 71 years EKG: SINUS TACHYCARDIA LOW QRS VOLTAGE IN EXTREMITY LEADS SEPTAL MYOCARDIAL INFARCTION Baseline artifact. Since previous tracing, no significant change noted ABNORMAL ECG PREVIOUS TRACING : 12/19/2016 11.56.25 DOCTOR: Lynda Jacob Interpretating Date/Time 12/20/2016 17:11:06
== END 2016-12-20 19:37 | disposition home or self-care (01) ==
LOC: NEPE 10:20 → NEDA 15:30 → NEPHCDU 21:22
PROVIDERS: ADMIT Hospitalist; ATTEND Hospitalist
DX: R13.10 Dysphagia, unspecified (principal); E86.0 Dehydration; E87.2 Acidosis; E86.1 Hypovolemia; E87.6 Hypokalemia; I10 Essential (primary) hypertension; R94.31 Abnormal electrocardiogram [ECG] [EKG]; G20 Parkinson's disease; G25.0 Essential tremor; I44.0 Atrioventricular block, first degree; N28.9 Disorder of kidney and ureter, unspecified; K76.0 Fatty (change of) liver, not elsewhere classified; K44.9 Diaphragmatic hernia without obstruction or gangrene; Z72.0 Tobacco use; Z86.718 Personal history of other venous thrombosis and embolism; Z86.73 Personal history of transient ischemic attack (TIA), and cerebral infarction without residual deficits; Z79.01 Long term (current) use of anticoagulants; Z87.11 Personal history of peptic ulcer disease; Z90.3 Acquired absence of stomach [part of]
CPT/HCPCS: 36600; 71010; 71275; 74177; 74249; 80053; 81001; 82550; 82805; 83605; 83690; 84484; 85025; 85610; 85730; 87040; 87328; 87493; 87506; 87804; 92610; 93005; 96361; 96365; 96367; 97163; 99285; C9113; G0378; G8987; G8988; G8996; G8997; G8998; J2543; J3370; J7030; J7050; Q9967; 87329

== ENCOUNTER 2017-02-03 23:23 | Inpatient (IN) | payer OTHER, MEDICARE ==
[~2017-02-03] VITALS: Ht 172.7 cm; Wt 57.8 kg
[~2017-02-03 23:23] MED LIST changes: +AMLO5TAB2 PO; -ASPI81TA45 PO; +ATEN100T PO; -ATEN50 PO; +CARB25TA9 PO; -CEFU1TAB43 PO; +CHOL100025 PO; +FOLI400T PO; -FOLI400T30 PO; +HYDR10TA23 PO; -LISI-360 PO; -LORA1TAB PO; +LOSA25TA PO; +POTA-163 PO; -SINE25100 PO; -TAB-TAB PO; -VITA20002 PO; +XARE15TA PO; -[UNRECOGNIZED DRUG - CODE] PO
[2017-02-03 23:31] VITALS: BP 178/125; PULSE 138; RESP 18; TEMP 97.3; O2SAT 94
[2017-02-04] VITALS (7 sets, daily range): BP systolic 155–216; BP diastolic 87–129; PULSE 66–142; RESP 16–20; TEMP 97.5–98.1; O2SAT 92–100
[2017-02-04] MEDS ORDERED: SODIUM CHLOR 0.9% 1000 ML INJ 1,000 ML IV SCH (00:12)
[2017-02-04] MEDS ORDERED: ONDANSETRON HCL 4 MG/2 ML VIAL IVP ONE (00:15)
[2017-02-04] MEDS ORDERED: SODIUM CHLORIDE 0.9% FLUSH 5 ML FLUSH IVF PRN (00:15)
--- NOTE | 2017-02-04 00:17 | PD ---
HPI Chief Complaint: GI Complaint Time Seen by Provider: 00:05 Travel History International Travel<30 days: No Contact w/Intl Traveler<30days: No Traveled to known affect area: No History of Present Illness HPI 72-year-old male with history of Parkinson's disease, hypertension, hyperlipidemia, on Coumadin for history of DVTs, here for evaluation of nausea and vomiting. The patient reports that he is been unable to keep any food or liquid down for the last 3 days. Emesis has been clear, nonbloody, nonbilious. He denies abdominal pain. He reports history of abdominal surgeries for gastric ulcers. Last bowel movement was this morning. He denies fevers or chills. PFSH Past Medical History Hx Anticoagulant Therapy: Yes (XARELTA) Cancer: No Cardiovascular Problems: Yes (HTN) Cerebrovascular Accident: Yes (TIA) Diabetes: No Deep Vein Thrombosis: Yes Endocrine: No Genitourinary: No Hiatal Hernia: No Hypertension: Yes Immune Disorder: No Musculoskeletal: No Neurologic: Yes Parkinson's Disease: Yes Psychiatric: No Reproductive: No Respiratory: No Thyroid Disease: No Tetanus Vaccination: < 5 Years Influenza Vaccination: No Past Surgical History Abdominal Surgery: Yes (PARTIAL GASTRECTOMY / HERNIA REPAIR) Other Surgery: Yes Social History Alcohol Use: No (BEER DAILY) Tobacco Use: No (QUIT 30 YEARS) Substance Use: No Allergies-Medications (Allergen,Severity, Reaction): Coded Allergies: No Known Allergies (Verified , 02/04/17) Reported Meds & Prescriptions Reported Meds & Active Scripts Active Reported Xarelto (Rivaroxaban) 15 Mg Tab 15 Mg PO DAILY Potassium Chloride ER (Potassium Chloride) 20 Meq Tab 20 Meq PO DAILY Losartan (Losartan Potassium) 25 Mg Tab 25 Mg PO DAILY Hydralazine (Hydralazine HCl) 10 Mg Tab 10 Mg PO BID Take with a meal Folic Acid 400 Mcg Tab 400 Mcg PO DAILY Vitamin B-12 (Cyanocobalamin) 1,000 Mcg Tab 1,000 Mcg PO DAILY Vitamin D3 (Cholecalciferol) 1,000 Unit Chew 2,000 Units PO DAILY Carbidopa-Levodopa 25-100 Mg Tab 1 Tab PO Q8HR Atenolol 100 Mg Tab 100 Mg PO DAILY Amlodipine (Amlodipine Besylate) 5 Mg Tab 5 Mg PO DAILY Review of Systems Except as stated in HPI: all other systems reviewed are Neg Physical Exam Narrative GENERAL: Well-developed, well-nourished, elderly-appearing male, tremulous, awake, alert SKIN: Warm and dry. HEAD: Atraumatic. Normocephalic. EYES: Pupils equal and round. No scleral icterus. No injection or drainage. ENT: Mucous membranes pink and dry. NECK: Trachea midline. No JVD. CARDIOVASCULAR: Tachycardic, regular. RESPIRATORY: No accessory muscle use. Clear to auscultation. Breath sounds equal bilaterally. GASTROINTESTINAL: Abdomen soft, non-tender, nondistended. MUSCULOSKELETAL: No obvious deformities. No clubbing. No cyanosis. No edema. NEUROLOGICAL: Awake and alert. No obvious cranial nerve deficits. Motor grossly within normal limits. Normal speech. PSYCHIATRIC: Appropriate mood and affect; insight and judgment normal. Data Data Last Documented VS Vital Signs Date Time Temp Pulse Resp B/P Pulse Ox O2 Delivery O2 Flow Rate FiO2 02/04/17 00:03 18 02/04/17 00:03 142 216/129 95 Room Air 02/03/17 23:31 97.3 Orders Complete Blood Count With Diff (02/04/17 00:12) Comprehensive Metabolic Panel (02/04/17 00:12) Lipase (02/04/17 00:12) Lactic Acid (02/04/17:12) Prothrombin Time / Inr (Pt) (02/04/17:12) Act Partial Throm Time (Ptt) (02/04/17 00:12) Urinalysis - C+S If Indicated (02/04/17 00:12) Abdomen, Flat & Upright (02/04/17 ) Ct Abd/Pel W Iv Contrast(Rout) (02/04/17 00:12) Iv Access Insert/Monitor (02/04/17 00:12) Ecg Monitoring (02/04/17 00:12) Oximetry (02/04/17 00:12) Ondansetron Inj (Zofran Inj) (02/04/17 00:15) Sodium Chlor 0.9% 1000 Ml Inj (Ns 1000 M (02/04/17 00:12) Sodium Chloride 0.9% Flush (Ns Flush) (02/04/17 00:15) Chest, Single Ap (02/04/17 00:12) Blood Culture (02/04/17 00:12) Sodium Chlor 0.9% 1000 Ml Inj (Ns 1000 M (02/04/17 01:15) Iohexol 350 Inj (Omnipaque 350 Inj) (02/04/17 02:00) Sodium Chlor 0.9% 1000 Ml Inj (Ns 1000 M (02/04/17 02:15) Cath For Specimen (02/04/17 02:28) Lactic Acid (02/04/17 03:28) Labs Laboratory Tests Test 02/04/17 02/04/17 02/04/17 00:15 00:30 02:37 White Blood Count 5.2 TH/MM3 Red Blood Count 5.83 MIL/MM3 Hemoglobin 19.2 GM/DL Hematocrit 56.4 % Mean Corpuscular Volume 96.9 FL Mean Corpuscular Hemoglobin 33.0 PG Mean Corpuscular Hemoglobin 34.1 % Concent Red Cell Distribution Width 16.7 % Platelet Count 174 TH/MM3 Mean Platelet Volume 8.8 FL Neutrophils (%) (Auto) 78.6 % Lymphocytes (%) (Auto) 10.3 % Monocytes (%) (Auto) 9.1 % Eosinophils (%) (Auto) 0.5 % Basophils (%) (Auto) 1.5 % Neutrophils # (Auto) 4.1 TH/MM3 Lymphocytes # (Auto) 0.5 TH/MM3 Monocytes # (Auto) 0.5 TH/MM3 Eosinophils # (Auto) 0.0 TH/MM3 Basophils # (Auto) 0.1 TH/MM3 CBC Comment DIFF FINAL Differential Comment Prothrombin Time 15.4 SEC Prothromb Time International 1.4 RATIO Ratio Activated Partial 43.2 SEC Thromboplast Time Sodium Level 137 MEQ/L Potassium Level 4.6 MEQ/L Chloride Level 96 MEQ/L Carbon Dioxide Level 21.6 MEQ/L Anion Gap 19 MEQ/L Blood Urea Nitrogen 5 MG/DL Creatinine 1.30 MG/DL Estimat Glomerular Filtration 54 ML/MIN Rate Random Glucose 120 MG/DL Calcium Level 9.2 MG/DL Total Bilirubin 0.9 MG/DL Aspartate Amino Transf 73 U/L (AST/SGOT) Alanine Aminotransferase 12 U/L (ALT/SGPT) Alkaline Phosphatase 139 U/L Total Protein 7.8 GM/DL Albumin 3.2 GM/DL Lipase 114 U/L Lactic Acid Level 9.8 mmol/L Urine Color YELLOW Urine Turbidity CLEAR Urine pH 6.0 Urine Specific [place] 1.030 Urine Protein NEG mg/dL Urine Glucose (UA) NEG mg/dL Urine Ketones NEG mg/dL Urine Occult Blood NEG Urine Nitrite NEG Urine Bilirubin NEG Urine Urobilinogen LESS THAN 2.0 MG/DL Urine Leukocyte Esterase NEG Urine RBC LESS THAN 1 /hpf Urine WBC 1 /hpf Urine Squamous Epithelial <1 /hpf Cells Microscopic Urinalysis Comment CULT NOT INDICATED MDM Medical Decision Making Medical Screen Exam Complete: Yes Emergency Medical Condition: Yes Medical Record Reviewed: Yes Interpretation(s) EKG: Sinus tachycardia, rate 128, no acute ischemic abnormality. Differential Diagnosis Gastroenteritis, dehydration, bowel obstruction, metabolic abnormality, sepsis, intra-abdominal infectious process Narrative Course Initial vital signs show heart rate 138, blood pressure 178/125, pulse ox 94% on room air, oral temp of 97.3F. Repeat heart rate after 2 L of normal saline IV is 114. CBC shows WBC 5.2, hemoglobin 19.2, hematocrit 56.4, platelets 174, neutrophils 78%. CMP is remarkable for anion gap 19, creatinine 1.3, GFR 54, random glucose 120, otherwise unremarkable. Lactic acid is 9.8. UA is not suggestive of UTI. Chest x-ray: The lungs are clear. Abdomen x-ray: No dilated loops of small or large bowel. CT abdomen pelvis: No acute findings. No dilated loops of bowel. Hepatic steatosis, diverticula of the sigmoid and prior surgery about the stomach, stable in appearance. The patient and the patient's family were made aware of all findings. His lactic acidosis is likely secondary to gastroenteritis and dehydration. Does not appear to be septic. Blood pressure has been normotensive to hypertensive. Heart rate remains elevated, however is improved after receiving 2 L of normal saline IV. Case discussed with hospitalist Dr. West who will admit the patient to her service. Diagnosis Primary Impression: Lactic acidosis Additional Impression: Intractable nausea and vomiting Qualified Code: R11.2 - Intractable vomiting with nausea, unspecified vomiting type Admitting Information Admitting Physician Requests: Admit Alpesh Nina MD Feb 04, 2017 00:17
[2017-02-04 00:35] LABS: AUTOMATED NEUTROPHIL # 4.1 TH/MM3 (1.8-7.7); BASOPHIL # 0.1 TH/MM3 (0-0.2); BASOPHIL % 1.5 % (0.0-2.0); EOSINOPHIL % 0.5 % (0.0-4.0); HEMATOCRIT 56.4 % (39.0-51.0); HEMO FLAGS DIFF FINAL; LYMPH % 10.3 % (9.0-44.0); LYMPHOCYTE # 0.5 TH/MM3 (1.0-4.8); MEAN CELL VOLUME 96.9 FL (80.0-100.0); MEAN CORPUSCULAR HGB CONC 34.1 % (32.0-36.0); MONO % 9.1 % (0.0-8.0); NEUT % 78.6 % (16.0-70.0); PLATELET COUNT 174 TH/MM3 (150-450); RED BLOOD COUNT 5.83 MIL/MM3 (4.50-5.90); RED CELL DISTRIBUTION WIDTH 16.7 % (11.6-17.2); WHITE BLOOD COUNT 5.2 TH/MM3 (4.0-11.0)
[2017-02-04 00:45] LABS: APTT (PATIENT) 43.2 SEC (24.3-30.1); INTERNATIONAL NORMALIZED RATIO 1.4 RATIO; PROTHROMBIN TIME - PATIENT 15.4 SEC (9.8-11.6)
[2017-02-04 01:02] LABS: ALKALINE PHOSPHATASE 139 U/L (45-117); ALT (GPT) 12 U/L (12-78); TOTAL BILIRUBIN ADULT 0.9 MG/DL (0.2-1.0)
--- NOTE | 2017-02-04 01:10 | RADRPT ---
EXAM DATE/TIME: 02/04/2017 00:29 [facility] COMPARISON: CHEST SINGLE AP, December 19, 2016, 13:02. INDICATIONS : Abdominal pain. MEDICAL HISTORY : Ulcers. SURGICAL HISTORY : None. ENCOUNTER: Initial ACUITY: 1 day PAIN SCORE: 3/10 LOCATION: Bilateral Abdomen FINDINGS: A single view of the chest demonstrates the lungs to be symmetrically aerated without evidence of mas s, infiltrate or effusion. The cardiomediastinal contours are unremarkable. Osseous structures are intact. Multiple metallic clips in the epigastric region. CONCLUSION: The lungs are clear. Salvador Marie MD on February 04, 2017 at 1:08 Board Certified Radiologist. This report was verified electronically.
--- NOTE | 2017-02-04 01:11 | RADRPT ---
EXAM DATE/TIME: 02/04/2017 00:34 [facility] COMPARISON: No previous studies available for comparison. INDICATIONS : Abdominal pain. MEDICAL HISTORY : Ulcers. SURGICAL HISTORY : None. ENCOUNTER: Initial ACUITY: 1 day PAIN SCORE: 4/10 LOCATION: Bilateral Abdomen FINDINGS: Supine and upright views of the abdomen were performed. The abdominal bowel gas pattern is normal. No air fluid levels are seen. No abnormal masses, calcifications, or organomegaly is seen. The visu alized lower lungs are clear. No evidence of free intraperitoneal gas. Metallic clips and anastomos is sutures in the epigastric region. Multiple metallic sutures in the left lower quadrant. Mild cur vature of the thoracolumbar spine towards the right markable. CONCLUSION: No dilated loops of small or large bowel. Salvador Marie MD on February 04, 2017 at 1:09 Board Certified Radiologist. This report was verified electronically.
[2017-02-04] MEDS ORDERED: SODIUM CHLOR 0.9% 1000 ML INJ 1,000 ML IV ONE ×2 (01:15→02:15)
[2017-02-04 01:21] LABS: ANION GAP 19 MEQ/L (5-15); AST (GOT) 73 U/L (15-37); BICARBONATE 21.6 MEQ/L (21.0-32.0); BLOOD UREA NITROGEN 5 MG/DL (7-18); CHLORIDE 96 MEQ/L (98-107); GLOMERULAR FILTRATION RATE 54 ML/MIN (>89); SODIUM (NA) 137 MEQ/L (136-145)
[2017-02-04 01:22] LABS: POTASSIUM 4.6 MEQ/L (3.5-5.1)
[2017-02-04] MEDS ORDERED: IOHEXOL 350 MG/ML 10 ML VIAL (for RAD DIAG) IV ONE (02:00)
--- NOTE | 2017-02-04 02:28 | RADRPT ---
EXAM DATE/TIME: 02/04/2017 01:50 [facility] COMPARISON: CT ABDOMEN & PELVIS W CONTRAST, December 19, 2016, 13:52. INDICATIONS : Abdominal pain with vomiting IV CONTRAST: 97 cc Omnipaque 350 (iohexol) IV ORAL CONTRAST: No oral contrast ingested. RADIATION DOSE: 6.64 CTDIvol (mGy) MEDICAL HISTORY : Hypertension. Cardiovascular disease SURGICAL HISTORY : hernia repair, partial gastrectomy ENCOUNTER: Initial ACUITY: 1 day PAIN SCALE: 6/10 LOCATION: abdomen TECHNIQUE: Volumetric scanning of the abdomen and pelvis was performed. Using automated exposure control and ad justment of the mA and/or kV according to patient size, radiation dose was kept as low as reasonably achievable to obtain optimal diagnostic quality images. FINDINGS: LOWER LUNGS: The visualized lower lungs are clear. LIVER: Homogeneous diffusely decreased density without focal lesion. There is no dilation of the biliary tr ee. No calcified gallstones. SPLEEN: Normal size without lesion. PANCREAS: Within normal limits. KIDNEYS: Normal in size and shape. There is no mass, stone or hydronephrosis. Tiny cysts similar to prior. ADRENAL GLANDS: Within normal limits. VASCULAR: There is no aortic aneurysm. BOWEL/MESENTERY: Hemoclips and anastomosis suture about the stomach, stable. No dilated loops of small or large bowel . Multiple small sigmoid diverticula without radiographic evidence of diverticulitis. No evidence o f free fluid. ABDOMINAL WALL: Within normal limits. RETROPERITONEUM: There is no lymphadenopathy. BLADDER: No wall thickening or mass. REPRODUCTIVE: Stable calcification in the central zone the prostate gland. INGUINAL: There is no lymphadenopathy or hernia. MUSCULOSKELETAL: Within normal limits for patient age. CONCLUSION: No acute findings. No dilated loops of bowel. Hepatic steatosis, diverticula of the sigmoid and tripp or surgery about the stomach, stable in appearance. Salvador Marie MD on February 04, 2017 at 2:23 Board Certified Radiologist. This report was verified electronically.
[2017-02-04 02:52] LABS: BLOOD, URINE NEG (NEG); COMMENT (UR) CULT NOT INDICATED; CULTURE IF INDICATED CULT NOT INDICATED; GLUCOSE,URINE NEG (NEG); KETONE, URINE NEG (NEG); NITRITE,URINE NEG (NEG); SQUAMOUS EPITHELIAL CELL URINE <1 /hpf (0-5); URINE COLOR YELLOW (YELLW/STRAW)
[2017-02-04] MEDS ORDERED: ONDANSETRON HCL 4 MG/2 ML VIAL IVP PRN (03:45)
[2017-02-04] MEDS ORDERED: ACETAMINOPHEN 325 MG TAB PO PRN (03:45)
[2017-02-04] MEDS ORDERED: MORPHINE SULFATE 4 MG/ML INJ IV PRN (03:45)
[2017-02-04] MEDS ORDERED: ACETAMINOPHEN/HYDROcodone 325 MG/5 MG TAB PO PRN (03:45)
[2017-02-04] MEDS ORDERED: SODIUM CHLORIDE 0.9% FLUSH 5 ML FLUSH FLUSH PRN (03:45)
[2017-02-04] MEDS ORDERED: BISACODYL 10 MG SUPP PR PRN (03:45)
[2017-02-04] MEDS: SODIUM CHLOR 0.9% 1000 ML INJ 1,000 ML IV SCH ×3 (04:16→20:34)
[2017-02-04] MEDS: CIPROFLOXACIN 400 MG PREMIX 200 ML IV SCH ×2 (04:16→16:01)
[2017-02-04] MEDS: PANTOPRAZOLE SODIUM 40 MG VIAL IV PUSH SCH ×2 (04:17→16:02)
--- NOTE | 2017-02-04 04:30 | HHI.HP ---
[facility] Unknown Admission Diagnosis lactic acidosis, nausea and vomiting, sinus tachycardia Diagnoses: (1) Intractable nausea and vomiting Diagnosis: Principal (2) Lactic acidosis Diagnosis: Principal (3) Dehydration Diagnosis: Principal (4) Parkinson disease Diagnosis: Principal (5) HTN (hypertension) Diagnosis: Principal Travel History International Travel<30 Days: No Contact w/Intl Traveler <30 Da: No Traveled to Known Affected Are: No History of Present Illness This is a 72-year-old male with a PMH of HTN, Parkinson's Disease, h/o DVT on Xarelto and h/o TIA who was brought to the ER secondary to complaints of abdominal pain, nausea and vomiting x4 days. Denies fever, chills or diarrhea. Reports normal bowel movements. On arrival, BP 178/125, HR 138, O2 sat 94% on RA, Afebrile. WBC normal, mild shift. Hgb 19.2. AG 19. GFR 54. Lactic Acid 9.8, repeat pending. U/a negative. CXR w/ no acute findings. Abd X-ray with no dilated loops of small or large bowel, CT Abd/Pelvis w/ no acute findings. While in ER, pt w/ persistent tachycardia HR 140's sinus rhythm, S/p IVF w/ improvement, HR currently 110's. Review of Systems Except as stated in HPI: all other systems reviewed are Neg ROS: 14 point review of systems otherwise negative. Past Family Social History Past Medical History PMH: HTN, Parkinson's Disease, h/o DVT on Xarelto and h/o TIA Past Surgical History PAST SURGICAL HISTORY: Partial Gastrectomy, Hernia Repair Allergies: Coded Allergies: No Known Allergies (Verified , 02/04/17) Family History PAST FAMILY HISTORY: Reviewed. No h/o DM or CAD Social History PAST SOCIAL HISTORY: 1-2 beers daily. Negative for tobacco or drugs. Physical Exam Vital Signs Vital Signs Date Time Temp Pulse Resp B/P Pulse Ox O2 Delivery O2 Flow Rate FiO2 02/04/17 00:03 18 02/04/17 00:03 142 18 216/129 95 Room Air 02/03/17 23:31 97.3 138 18 178/125 94 Room Air Physical Exam PE: GENERAL: Pleasant elderly male in no acute distress, +tremors. HEENT: PERRLA, EOMI. No scleral icterus or conjunctival pallor. No lid lag or facial droop. CARDIOVASCULAR: Tachycardia, sinus. No obvious murmurs to auscultation. No chest tenderness to palpation. RESPIRATORY: No obvious rhonchi or wheezing. Clear to auscultation. Breath sounds equal bilaterally. GASTROINTESTINAL: Abdomen soft, non-tender, nondistended. BS normal. MUSCULOSKELETAL: Extremities without clubbing, cyanosis, or edema. No obvious deformities. NEUROLOGICAL: Awake, alert and oriented x4. No focal neurologic deficits. Moving both upper and lower extremities spontaneously. Laboratory Laboratory Tests Test 02/04/17 02/04/17 02/04/17 00:15 00:30 02:37 White Blood Count 5.2 Red Blood Count 5.83 Hemoglobin 19.2 Hematocrit 56.4 Mean Corpuscular Volume 96.9 Mean Corpuscular Hemoglobin 33.0 Mean Corpuscular Hemoglobin 34.1 Concent Red Cell Distribution Width 16.7 Platelet Count 174 Mean Platelet Volume 8.8 Neutrophils (%) (Auto) 78.6 Lymphocytes (%) (Auto) 10.3 Monocytes (%) (Auto) 9.1 Eosinophils (%) (Auto) 0.5 Basophils (%) (Auto) 1.5 Neutrophils # (Auto) 4.1 Lymphocytes # (Auto) 0.5 Monocytes # (Auto) 0.5 Eosinophils # (Auto) 0.0 Basophils # (Auto) 0.1 CBC Comment DIFF FINAL Differential Comment Prothrombin Time 15.4 Prothromb Time International 1.4 Ratio Activated Partial 43.2 Thromboplast Time Sodium Level 137 Potassium Level 4.6 Chloride Level 96 Carbon Dioxide Level 21.6 Anion Gap 19 Blood Urea Nitrogen 5 Creatinine 1.30 Estimat Glomerular Filtration 54 Rate Random Glucose 120 Calcium Level 9.2 Total Bilirubin 0.9 Aspartate Amino Transf 73 (AST/SGOT) Alanine Aminotransferase 12 (ALT/SGPT) Alkaline Phosphatase 139 Total Protein 7.8 Albumin 3.2 Lipase 114 Lactic Acid Level 9.8 Urine Color YELLOW Urine Turbidity CLEAR Urine pH 6.0 Urine Specific Premier 1.030 Urine Protein NEG Urine Glucose (UA) NEG Urine Ketones NEG Urine Occult Blood NEG Urine Nitrite NEG Urine Bilirubin NEG Urine Urobilinogen LESS THAN 2.0 Urine Leukocyte Esterase NEG Urine RBC LESS THAN 1 Urine WBC 1 Urine Squamous Epithelial <1 Cells Microscopic Urinalysis Comment CULT NOT INDICATED Date/Time Procedure Status Source Growth 02/04/17 00:30 Aerobic Blood Culture Received Blood Peripheral Pending 02/04/17 00:30 Anaerobic Blood Culture Received Blood Peripheral Pending Result Diagram: 02/04/171402/04/1714 Assessment and Plan Problem List: (1) Intractable nausea and vomiting ICD Code: R11.2 Status: Acute (2) Lactic acidosis ICD Code: E87.2 Status: Acute (3) Dehydration ICD Code: E86.0 Status: Acute (4) Parkinson disease ICD Code: G20 Status: Acute (5) HTN (hypertension) ICD Code: I10 Status: Chronic Assessment and Plan A/P: 1. Intractable N/V: ongoing x4 days w/ associated decreased PO intake. Abd X- ray w/ no dilated loops of bowel, CT Abd/Pelvis w/ no acute findings, images reviewed by me. In light of his ongoing symptoms and c/o abdominal pain will start on empiric treatment for gastroenteritis w/ Cipro/Flagyl, IVF, analgesics/ antiemetics as needed. 2. Lactic Acidosis: Lactic 9.8, likely secondary to significant dehydration rather than sepsis. No obvious source, CXR w/ no acute findings, images reviewed by me. U/a negative for UTI. IVF, repeat Lactic Acid down to 7.8 after IVF. Repeat Lactic after additional IVF. 3. Dehydration: Secondary to above-intractable nausea/vomiting, decreased PO intake. Continue w/ IVF. 4. Parkinson's Disease: Resume home Sinemet. 5. HTN: BP 170-220 on arrival, currently 160's systolic. Resume home medications. Will monitor BP. 6. DVT Prophylaxis: On Xarelto for h/o DVT. 7. Social work for d/c planning as needed. 8. Case discussed w/ ER physician at length. Physician Certification 2 Midnight Certification Type: Admission for Inpatient Services Order for Inpatient Services The services are ordered in accordance with Medicare regulations or non- Medicare payer requirements, as applicable. In the case of services not specified as inpatient-only, they are appropriately provided as inpatient services in accordance with the 2-midnight benchmark. Estimated LOS (days): 2 days is the estimated time the patient will need to remain in the hospital, assuming treatment plan goals are met and no additional complications. Post-Hospital Plan: Not yet determined Problem Qualifiers (1) Intractable nausea and vomiting: Qualified Code: R11.2 - Intractable vomiting with nausea, unspecified vomiting type Erna West MD Feb 04, 2017 04:30
[2017-02-04] MEDS: metroNIDAZOLE 500 MG INJ 100 ML IV SCH ×3 (05:28→20:33)
[2017-02-04] MEDS: CARBIDOPA/LEVODOPA 25 MG/100 MG TAB PO SCH ×3 (06:12→20:33)
[2017-02-04] MEDS: hydrALAZINE HCL 10 MG TAB PO SCH ×2 (08:38→20:34)
[2017-02-04] MEDS: amLODIPine BESYLATE 5 MG TAB PO SCH (08:38)
[2017-02-04] MEDS: FOLIC ACID 1 MG TAB PO SCH (08:38)
[2017-02-04] MEDS: RIVAROXABAN 15 MG TAB PO SCH (08:38)
[2017-02-04] MEDS: SODIUM CHLORIDE 0.9% FLUSH 5 ML FLUSH FLUSH SCH ×2 (08:39→20:33)
[2017-02-04] MEDS: ATENOLOL 100 MG TAB PO SCH (08:39)
[2017-02-04] MEDS ORDERED: METOPROLOL TARTRATE 25 MG TAB PO ONE (11:00)
[2017-02-04] MEDS ORDERED: PILL SPLITTER OTHER PRN (11:00)
--- NOTE | 2017-02-04 14:33 | EKG ---
Date Performed: 02/04/2017 Time Performed: 00:08:08 PTAGE: 72 years EKG: SINUS TACHYCARDIA WITH FREQUENT SUPRAVENTRICULAR PREMATURE COMPLEXES LOW QRS VOLTAGE IN EXT REMITY LEADS SEPTAL MYOCARDIAL INFARCTION ABNORMAL ECG Compared to prior tracing no significant beltre e PREVIOUS TRACING : 12/19/2016 15.11 DOCTOR: Roberth Kirkpatrick Interpretating Date/Time 02/04/2017 14:32:27
[2017-02-04] MEDS: METOPROLOL TARTRATE 25 MG TAB PO SCH (20:33)
[2017-02-05] VITALS (7 sets, daily range): BP systolic 119–150; BP diastolic 74–89; PULSE 54–60; RESP 16–19; TEMP 97.4–98; O2SAT 94–96
[2017-02-05] MEDS: CIPROFLOXACIN 400 MG PREMIX 200 ML IV SCH ×2 (04:39→15:55)
[2017-02-05] MEDS: metroNIDAZOLE 500 MG INJ 100 ML IV SCH ×3 (04:39→21:35)
[2017-02-05] MEDS: PANTOPRAZOLE SODIUM 40 MG VIAL IV PUSH SCH ×2 (04:41→15:55)
[2017-02-05] MEDS: CARBIDOPA/LEVODOPA 25 MG/100 MG TAB PO SCH ×3 (04:45→21:39)
[2017-02-05 08:10] LABS: AUTOMATED NEUTROPHIL # 3.1 TH/MM3 (1.8-7.7); BASOPHIL % 0.8 % (0.0-2.0); EOSINOPHIL # 0.3 TH/MM3 (0-0.4); EOSINOPHIL % 5.5 % (0.0-4.0); HEMATOCRIT 42.9 % (39.0-51.0); HEMO FLAGS DIFF FINAL; LYMPHOCYTE # 1.1 TH/MM3 (1.0-4.8); MEAN CELL VOLUME 95.1 FL (80.0-100.0); MEAN CORPUSCULAR HEMOGLOBIN 32.8 PG (27.0-34.0); MEAN CORPUSCULAR HGB CONC 34.5 % (32.0-36.0); MONO % 11.5 % (0.0-8.0); NEUT % 61.2 % (16.0-70.0); PLATELET COUNT 109 TH/MM3 (150-450); RED BLOOD COUNT 4.51 MIL/MM3 (4.50-5.90); RED CELL DISTRIBUTION WIDTH 16.2 % (11.6-17.2); WHITE BLOOD COUNT 5.1 TH/MM3 (4.0-11.0)
[2017-02-05 08:34] LABS: BICARBONATE 27.3 MEQ/L (21.0-32.0)
[2017-02-05 08:36] LABS: CALCIUM-PROTEIN CORRECTED 8.2 MG/DL (8.5-10.1); POTASSIUM 2.9 MEQ/L (3.5-5.1); TOTAL BILIRUBIN ADULT 1.3 MG/DL (0.2-1.0)
[2017-02-05] MEDS: ATENOLOL 100 MG TAB PO SCH (08:39)
[2017-02-05] MEDS: METOPROLOL TARTRATE 25 MG TAB PO SCH ×2 (08:39→21:44)
[2017-02-05] MEDS: FOLIC ACID 1 MG TAB PO SCH (08:39)
[2017-02-05] MEDS: hydrALAZINE HCL 10 MG TAB PO SCH ×2 (08:40→21:39)
[2017-02-05] MEDS: RIVAROXABAN 15 MG TAB PO SCH (08:40)
[2017-02-05] MEDS: amLODIPine BESYLATE 5 MG TAB PO SCH (08:40)
[2017-02-05] MEDS ORDERED: CALCIUM GLUCONATE INJ 1 GM in DEXTROSE 5% IN WATER 100ML INJ 100 ML IV ONE ×2 (09:00)
[2017-02-05] MEDS ORDERED: POTASSIUM CHLORIDE 10 MEQ CONTROLLED RELEASE TAB PO ONE (09:00)
[2017-02-05] MEDS ORDERED: MAGNESIUM OXIDE 400 MG TAB PO ONE (09:00)
[2017-02-05] MEDS ORDERED: MAGNESIUM OXIDE 400 MG TAB PO SCH (09:00)
--- NOTE | 2017-02-05 10:45 | HHI.PR ---
Subjective Remarks Says she feels improved today, no more n/v. No diarrhea. Denies fever or chills. / Feels weak, says he is having PT at home and he doesn't want to go to snf. Will ask PT on consult. Patient made comments of suicidal ideation yesterday and family requested psych evaluation. However patient is telling me today he doesn't have any suicidal thoughts and he doesn't feel depressed. Says she doesn't want to see a psychiatrist. Will DC psych consult. Patient is alert and awake and has good judgement. Objective Vitals Vital Signs Date Time Temp Pulse Resp B/P Pulse Ox O2 Delivery O2 Flow Rate FiO2 02/05/17 08:43 97.7 54 18 138/75 95 02/05/17 04:00 98.0 60 18 145/86 95 02/05/17 00:00 98.0 54 18 139/89 95 02/04/17 20:00 97.6 66 18 155/93 95 02/04/17 16:00 97.9 70 20 171/106 92 02/04/17 12:00 97.7 72 20 158/97 94 I/O 02/04/17 02/04/17 02/04/17 02/05/17 02/05/17 02/05/17 07:00 15:00 23:00 07:00 15:00 23:00 Intake Total 120 ml 120 ml 120 ml Output Total 0 ml 1650 ml 300 ml 450 ml Balance 120 ml -1530 ml -300 ml -330 ml Intake Oral 120 ml 120 ml 120 ml Output Urine Total 1650 ml 300 ml 450 ml Stool Total 0 ml # Voids 0 # Bowel Movements 0 Result Diagram: 02/05/17 0742 02/05/17 0742 Imaging Last Impressions Chest X-Ray 02/04/1711 Signed Impressions: Service Date/Time: Saturday, February 04, 2017 00:29 - CONCLUSION: The lungs are clear. Salvador Marie MD Abdomen/Pelvis CT 02/04/1711 Signed Impressions: Service Date/Time: Saturday, February 04, 2017 01:50 - CONCLUSION: No acute findings. No dilated loops of bowel. Hepatic steatosis, diverticula of the sigmoid and prior surgery about the stomach, stable in appearance. Salvador Marie MD Abdomen X-Ray 02/04/17 0000 Signed Impressions: Service Date/Time: Saturday, February 04, 2017 00:34 - CONCLUSION: No dilated loops of small or large bowel. Salvador Marie MD Objective Remarks GENERAL: Pleasant elderly male in no acute distress, +tremors. HEENT: PERRLA, EOMI. No scleral icterus or conjunctival pallor. No lid lag or facial droop. CARDIOVASCULAR: Tachycardia, sinus. No obvious murmurs to auscultation. No chest tenderness to palpation. RESPIRATORY: No obvious rhonchi or wheezing. Clear to auscultation. Breath sounds equal bilaterally. GASTROINTESTINAL: Abdomen soft, non-tender, nondistended. BS normal. MUSCULOSKELETAL: Extremities without clubbing, cyanosis, or edema. No obvious deformities. NEUROLOGICAL: Awake, alert and oriented x4. No focal neurologic deficits. Moving both upper and lower extremities spontaneously. 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 Abd X- ray w/ no dilated loops of bowel, CT Abd/Pelvis w/ no acute findings, images reviewed by me. In light of his ongoing symptoms and c/o abdominal pain will start on empiric treatment for gastroenteritis w/ Cipro/Flagyl, IVF, analgesics/ antiemetics as needed. Hypokalemia: K of 2.9 today, replaced and monitor. Lactic Acidosis: Lactic 9.8 in admission, trending down. Likely secondary to significant dehydration rather than sepsis. No obvious source, CXR w/ no acute findings, images reviewed by me. U/a negative for UTI. IVF, repeat Lactic Acid down to 7.8 after IVF. Repeat Lactic after additional IVF. Dehydration: Secondary to above-intractable nausea/vomiting, decreased PO intake. Continue w/ IVF. Parkinson's Disease: Resume home Sinemet. HTN: BP 170-220 on arrival. Resume home medications. Monitor BP and adjust meds as need. Physical deconditioning, will consult PT for eval. Patient however says he would like to go home and not SNF. Patient denies feeling depressed or having any suicidal ideations he doesn't want to see a psych doctor. DC psych consult. DVT Prophylaxis: On Xarelto for h/o DVT. CM for d/c planning as needed. Discussed with the nurse, patient Problem Qualifiers (1) Intractable nausea and vomiting: Qualified Code: R11.2 - Intractable vomiting with nausea, unspecified vomiting type Dayana Coley MD Feb 05, 2017 10:45
[2017-02-05] MEDS ORDERED: ZOFR4TAB PO (11:06)
--- NOTE | 2017-02-05 11:07 | HHI.DCPOC ---
Discharge Care Plan Goals to Promote Your Health * To prevent worsening of your condition and complications * To maintain your health at the optimal level Directions to Meet Your Goals Take your medications as prescribed Follow your dietary instruction Follow activity as directed Keep your appointments as scheduled Take your immunizations and boosters as scheduled If your symptoms worsen call your PCP, if no PCP go to Urgent Care Center or Emergency Room Smoking is Dangerous to Your Health. Avoid second hand smoke Call the 24-hour hour crisis hotline for domestic abuse at Dayana Coley MD Feb 05, 2017 11:06
[2017-02-05] MEDS ORDERED: POTASSIUM CHLOR 20 MEQ PREMIX 100 ML IV ONE (14:15)
[2017-02-05] MEDS: SODIUM CHLORIDE 0.9% FLUSH 5 ML FLUSH FLUSH SCH ×2 (14:25→21:38)
--- NOTE | 2017-02-05 15:53 | HHI.DS ---
Discharge Summary Admission Date Feb 04, 2017 at 03:33 Discharge Date: Feb 06, 2017 Admitting Diagnosis lactic acidosis, nausea and vomiting, sinus tachycardia (1) Intractable nausea and vomiting ICD Code: R11.2 Diagnosis: Principal (2) Lactic acidosis ICD Code: E87.2 Diagnosis: Principal (3) Dehydration ICD Code: E86.0 Diagnosis: Principal (4) Parkinson disease ICD Code: G20 Diagnosis: Secondary (5) HTN (hypertension) ICD Code: I10 Diagnosis: Secondary Procedures none Brief History - From Admission This is a 72-year-old male with a PMH of HTN, Parkinson's Disease, h/o DVT on Xarelto and h/o TIA who was brought to the ER secondary to complaints of abdominal pain, nausea and vomiting x4 days. Denies fever, chills or diarrhea. Reports normal bowel movements. On arrival, BP 178/125, HR 138, O2 sat 94% on RA, Afebrile. WBC normal, mild shift. Hgb 19.2. AG 19. GFR 54. Lactic Acid 9.8, repeat pending. U/a negative. CXR w/ no acute findings. Abd X-ray with no dilated loops of small or large bowel, CT Abd/Pelvis w/ no acute findings. While in ER, pt w/ persistent tachycardia HR 140's sinus rhythm, S/p IVF w/ improvement, HR currently 110's. CBC/BMP: 02/05/17 0742 02/05/17 0742 Significant Findings Laboratory Tests Test 02/04/17 02/04/17 02/04/17 02/04/17 00:15 00:30 03:29 08:37 Hemoglobin 19.2 GM/DL (13.0-17.0) Hematocrit 56.4 % (39.0-51.0) Neutrophils (%) (Auto) 78.6 % (16.0-70.0) Monocytes (%) (Auto) 9.1 % (0.0-8.0) Lymphocytes # (Auto) 0.5 TH/MM3 (1.0-4.8) Prothrombin Time 15.4 SEC (9.8-11.6) Activated Partial 43.2 SEC Thromboplast Time (24.3-30.1) Chloride Level 96 MEQ/L (98-107) Anion Gap 19 MEQ/L (5-15) Blood Urea Nitrogen 5 MG/DL (7-18) Estimat Glomerular Filtration 54 ML/MIN (>89) Rate Random Glucose 120 MG/DL (74-106) Aspartate Amino Transf 73 U/L (15-37) (AST/SGOT) Alkaline Phosphatase 139 U/L (45-117) Albumin 3.2 GM/DL (3.4-5.0) Lactic Acid Level 9.8 mmol/L 7.8 mmol/L 2.1 mmol/L (0.4-2.0) (0.4-2.0) (0.4-2.0) Test 02/05/17 07:42 Platelet Count 109 TH/MM3 (150-450) Monocytes (%) (Auto) 11.5 % (0.0-8.0) Eosinophils (%) (Auto) 5.5 % (0.0-4.0) Potassium Level 2.9 MEQ/L (3.5-5.1) Blood Urea Nitrogen 6 MG/DL (7-18) Estimat Glomerular Filtration 75 ML/MIN (>89) Rate Calcium Level 7.2 MG/DL (8.5-10.1) Protein Corrected Calcium 8.2 MG/DL (8.5-10.1) Total Bilirubin 1.3 MG/DL (0.2-1.0) Aspartate Amino Transf 57 U/L (15-37) (AST/SGOT) Alanine Aminotransferase 7 U/L (12-78) (ALT/SGPT) Total Protein 5.2 GM/DL (6.4-8.2) Albumin 2.2 GM/DL (3.4-5.0) Imaging Last Impressions Chest X-Ray 02/04/1711 Signed Impressions: Service Date/Time: Saturday, February 04, 2017 00:29 - CONCLUSION: The lungs are clear. Salvador Marie MD Abdomen/Pelvis CT 02/04/1711 Signed Impressions: Service Date/Time: Saturday, February 04, 2017 01:50 - CONCLUSION: No acute findings. No dilated loops of bowel. Hepatic steatosis, diverticula of the sigmoid and prior surgery about the stomach, stable in appearance. Salvador Marie MD Abdomen X-Ray 02/04/17 0000 Signed Impressions: Service Date/Time: Saturday, February 04, 2017 00:34 - CONCLUSION: No dilated loops of small or large bowel. Salvador Marie MD PE at Discharge GENERAL: Pleasant elderly male in no acute distress, +tremors. HEENT: PERRLA, EOMI. No scleral icterus or conjunctival pallor. No lid lag or facial droop. CARDIOVASCULAR: Tachycardia, sinus. No obvious murmurs to auscultation. No chest tenderness to palpation. RESPIRATORY: No obvious rhonchi or wheezing. Clear to auscultation. Breath sounds equal bilaterally. GASTROINTESTINAL: Abdomen soft, non-tender, nondistended. BS normal. MUSCULOSKELETAL: Extremities without clubbing, cyanosis, or edema. No obvious deformities. NEUROLOGICAL: Awake, alert and oriented x4. No focal neurologic deficits. Moving both upper and lower extremities spontaneously. Pt update on day of discharge Feels much better. Says she is not having any nausea or vomiting. No chest pain , sob. No diarrhea or constipation. Says he is not having appetite and would like to try meds to enhance appetite. Family(daughter also at bedside). Discussed with the patient and the family discharge plan. 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 Abd X- ray w/ no dilated loops of bowel, CT Abd/Pelvis w/ no acute findings, images reviewed by me. In light of his ongoing symptoms and c/o abdominal pain will start on empiric treatment for gastroenteritis w/ Cipro/Flagyl, IVF, analgesics/ antiemetics as needed. Hypokalemia: K of 2.9 on 01/08 , replaced and monitor. Repeat K 3.8 Lactic Acidosis: Lactic 9.8 in admission, trending down. Likely secondary to significant dehydration rather than sepsis. No obvious source, CXR w/ no acute findings, images reviewed by me. U/a negative for UTI. IVF, repeat Lactic Acid down to 7.8 after IVF. Repeat Lactic after additional IVF. Dehydration: Secondary to above-intractable nausea/vomiting, decreased PO intake. Continue w/ IVF. Parkinson's Disease: Resume home Sinemet. HTN: BP 170-220 on arrival. Resume home medications. Monitor BP and adjust meds as need. Physical deconditioning, will consult PT for eval. Patient however says he would like to go home and not SNF. Patient denies feeling depressed or having any suicidal ideations he doesn't want to see a psych doctor. DC psych consult. DVT Prophylaxis: On Xarelto for h/o DVT. CM for d/c planning as needed. Discussed with the nurse, patient Patient in nad, improved, PT recommends pt at home. Patient was Dc in fairly good condition , to follow up as OP with PCP and consultants. Pt Condition on Discharge: Stable Discharge Disposition: Disch w/ Home Health Serv Discharge Time: > 30 minutes Discharge Instructions DIET: Follow Instructions for: Heart Healthy Diet Activities you can perform: Regular-No Restrictions Follow up Referrals: Gastroenterology - 1 Week PCP Follow-up - 3-5 Days SNF/[facility]/ with [facility] New Medications: Docusate Sodium (Colace) 100 Mg Cap 100 MG PO BID Constipation #60 Ref 0 CAP Megestrol Liq (Megace Liq) 40 Mg/Ml Susp 400 MG PO DAILY Improve Appetite #30 Ref 0 ML Ondansetron (Zofran) 4 Mg Tab 4 MG PO Q8HR PRN NAUSEA OR VOMITING #20 Ref 0 TAB Continued Medications: Amlodipine (Amlodipine) 5 Mg Tab 5 MG PO DAILY Blood Pressure Management #30 Ref 0 TAB Atenolol (Atenolol) 100 Mg Tab 100 MG PO DAILY Blood Pressure Management #30 Ref 0 TAB Carbidopa-Levodopa (Carbidopa-Levodopa) 25-100 Mg Tab 1 TAB PO Q8HR Parkinson Disease Mgmt #90 Ref 0 TAB Cholecalciferol (Vitamin D3) 1,000 Unit Chew 2000 UNITS PO DAILY Nutritional Supplement #1 Ref 0 BOTTLE Cyanocobalamin (Vitamin B-12) 1,000 Mcg Tab 1000 MCG PO DAILY Nutritional Supplement #1 Ref 0 BOTTLE Folic Acid (Folic Acid) 400 Mcg Tab 400 MCG PO DAILY Nutritional Supplement Ref 0 TAB Hydralazine (Hydralazine) 10 Mg Tab 10 MG PO BID Take with a meal Blood Pressure Management Ref 0 TAB Losartan (Losartan) 25 Mg Tab 25 MG PO DAILY Blood Pressure Management #30 Ref 0 TAB Potassium Chloride ER (Potassium Chloride ER) 20 Meq Tab 20 MEQ PO DAILY Electrolyte Replacement #30 Ref 0 TAB Rivaroxaban (Xarelto) 15 Mg Tab 15 MG PO DAILY Blood Clot Prevention Ref 0 TAB Cosma,Dayana MD Feb 05, 2017 15:53
[2017-02-05 19:03] LABS: BICARBONATE 25.1 MEQ/L (21.0-32.0); POTASSIUM 3.8 MEQ/L (3.5-5.1)
[2017-02-05 19:39] LABS: CALCIUM-PROTEIN CORRECTED 8.1 MG/DL (8.5-10.1)
[2017-02-05] MEDS: SODIUM CHLOR 0.9% 1000 ML INJ 1,000 ML IV SCH (20:00)
[2017-02-06] VITALS: BP 136/80; PULSE 57; RESP 18; TEMP 97.4; O2SAT 93
[2017-02-06 04:00] VITALS: BP 135/75; PULSE 64; RESP 16; TEMP 97.2; O2SAT 95
[2017-02-06] MEDS: CIPROFLOXACIN 400 MG PREMIX 200 ML IV SCH (05:03)
[2017-02-06] MEDS: metroNIDAZOLE 500 MG INJ 100 ML IV SCH (05:05)
[2017-02-06] MEDS: PANTOPRAZOLE SODIUM 40 MG VIAL IV PUSH SCH (05:06)
[2017-02-06] MEDS: SODIUM CHLOR 0.9% 1000 ML INJ 1,000 ML IV SCH (05:07)
[2017-02-06] MEDS: CARBIDOPA/LEVODOPA 25 MG/100 MG TAB PO SCH (06:08)
[2017-02-06 06:51] LABS: AUTOMATED NEUTROPHIL # 4.2 TH/MM3 (1.8-7.7); BASOPHIL # 0.1 TH/MM3 (0-0.2); BASOPHIL % 1.2 % (0.0-2.0); EOSINOPHIL # 0.4 TH/MM3 (0-0.4); EOSINOPHIL % 6.5 % (0.0-4.0); HEMATOCRIT 46.8 % (39.0-51.0); HEMO FLAGS DIFF FINAL; LYMPH % 13.7 % (9.0-44.0); LYMPHOCYTE # 0.9 TH/MM3 (1.0-4.8); MEAN CORPUSCULAR HEMOGLOBIN 32.6 PG (27.0-34.0); MEAN CORPUSCULAR HGB CONC 34.3 % (32.0-36.0); MONO % 11.1 % (0.0-8.0); NEUT % 67.5 % (16.0-70.0); PLATELET COUNT 103 TH/MM3 (150-450); RED BLOOD COUNT 4.93 MIL/MM3 (4.50-5.90); RED CELL DISTRIBUTION WIDTH 16.2 % (11.6-17.2); WHITE BLOOD COUNT 6.3 TH/MM3 (4.0-11.0)
[2017-02-06 07:14] LABS: BICARBONATE 24.6 MEQ/L (21.0-32.0); POTASSIUM 3.4 MEQ/L (3.5-5.1)
[2017-02-06 08:00] VITALS: BP 145/78; PULSE 88; RESP 18; TEMP 97.5; O2SAT 96
[2017-02-06] MEDS ORDERED: POTASSIUM CHLORIDE 10 MEQ CONTROLLED RELEASE TAB PO ONE (08:00)
[2017-02-06] MEDS ORDERED: CALCIUM CARBONATE 500 MG CHEWABLE TAB CHEW ONE (08:00)
[2017-02-06] MEDS: RIVAROXABAN 15 MG TAB PO SCH (08:54)
[2017-02-06] MEDS: amLODIPine BESYLATE 5 MG TAB PO SCH (08:54)
[2017-02-06] MEDS: FOLIC ACID 1 MG TAB PO SCH (08:54)
[2017-02-06] MEDS: ATENOLOL 100 MG TAB PO SCH (08:54)
[2017-02-06] MEDS: hydrALAZINE HCL 10 MG TAB PO SCH (08:54)
[2017-02-06] MEDS: SODIUM CHLORIDE 0.9% FLUSH 5 ML FLUSH FLUSH SCH (08:55)
[2017-02-06] MEDS: METOPROLOL TARTRATE 25 MG TAB PO SCH (08:55)
[2017-02-06] MEDS ORDERED: MEGE40S PO (09:42)
[2017-02-06] MEDS ORDERED: COLA100C3 PO (09:45)
--- NOTE | 2017-02-06 14:05 | HHI.FF ---
Face to Face Verification Diagnosis: (1) Essential tremor (2) Dehydration, moderate (3) Dysphagia (4) Hyponatremia (5) UTI (urinary tract infection) (6) Vomiting (7) Dehydration (8) Lactic acidosis (9) Parkinson disease (10) HTN (hypertension) (11) Intractable nausea and vomiting Physical Therapy Order: Evaluate and Treat Home Health Nursing Order: Medical education Signs/symptoms of disease process Medication education-adverse effect Nursing assessment with vital signs I have seen patient Joann Le on 02/06/17. My clinical findings support the need for the requested home health care services because: Ltd mobility - disease progression Deconditioned w/ increased weakness I certify that my clinical findings support that this patient is homebound because: Post-op weakness Dayana Coley MD Feb 06, 2017 14:05
[2017-02-06] MEDS ORDERED: CALCIUM CARBONATE 500 MG CHEWABLE TAB CHEW SCH (21:00)
== END 2017-02-06 10:22 | disposition home health service (06) | DRG 392 ==
LOC: NEPE 23:23 → NEDA 02-04 03:33 → N04B 02-04 06:00
PROVIDERS: ADMIT Hospitalist; ATTEND Hospitalist
DX: K52.9 Noninfective gastroenteritis and colitis, unspecified (principal); E87.2 Acidosis; E78.5 Hyperlipidemia, unspecified; E86.0 Dehydration; E87.6 Hypokalemia; G20 Parkinson's disease; I10 Essential (primary) hypertension; Z86.718 Personal history of other venous thrombosis and embolism; Z86.73 Personal history of transient ischemic attack (TIA), and cerebral infarction without residual deficits; Z87.11 Personal history of peptic ulcer disease; Z90.3 Acquired absence of stomach [part of]
CPT/HCPCS: 71010; 74020; 74177; 80048; 80053; 81001; 83605; 83690; 83735; 84155; 85025; 85610; 85730; 87040; 93005; 96374; 96375; 96376; C9113; J0610; J0744; J2405; J7030; Q9967

== ENCOUNTER 2017-02-07 20:52 | Emergency (ER) | payer MEDICARE, OTHER ==
[~2017-02-07] VITALS: Ht 172.7 cm; Wt 58.0 kg
[~2017-02-07 20:52] MED LIST changes: +COLA100C3 PO; +MEGE40S PO; +ZOFR4TAB PO
[2017-02-07 20:56] VITALS: BP 126/81; PULSE 58; RESP 16; O2SAT 97
[2017-02-07] MEDS ORDERED: SODIUM CHLOR 0.9% 1000 ML INJ 1,000 ML IV SCH (22:30)
[2017-02-07] MEDS ORDERED: SODIUM CHLORIDE 0.9% FLUSH 5 ML FLUSH IVF PRN (22:30)
--- NOTE | 2017-02-07 23:02 | RADRPT ---
EXAM DATE/TIME: 02/07/2017 22:41 [facility] COMPARISON: CHEST SINGLE AP, February 04, 2017, 0:29. INDICATIONS : Short of breath. MEDICAL HISTORY : Hypertension. Cardiovascular disease SURGICAL HISTORY : Hernia repair, partial gastrectomy ENCOUNTER: Initial ACUITY: 1 day PAIN SCORE: 0/10 LOCATION: Bilateral chest FINDINGS: A single view of the chest demonstrates the lungs to be symmetrically hyperinflated without evidence of mass, infiltrate or effusion. The cardiomediastinal contours are unremarkable. Osseous structure s are intact. There multiple surgical clips and domenic near the gastroesophageal junction and left u pper abdomen. CONCLUSION: No acute disease. Varinder Gastelum MD on February 07, 2017 at 22:59 Board Certified Radiologist. This report was verified electronically.
--- NOTE | 2017-02-07 23:33 | PD ---
HPI Chief Complaint: Altered Mental Status Time Seen by Provider: 22:16 Travel History International Travel<30 days: No Contact w/Intl Traveler<30days: No Traveled to known affect area: No History of Present Illness HPI Patient is a 72-year-old male with hx of htn, parkinson's disease, dvt on xarelto and hx of TIA's; was brought to the emergency room by his family member (daughter) as she reports that patient has been having hallucinations since this morning. Reports that this morning, patient called the painting worker as he thought that someone was watching him from his TV stand. Reports that painting worker arrived to the house, there was no person in the home other than patient and his family member. Reports that towards the afternoon, patient began talking to his who was since passed. Reports that he has never had hallucinations like this. Daughter reports that patient was discharged from the hospital yesterday after being admitted for intractable nausea, vomiting, and lactic acidosis. Reports that he was not discharged on any antibiotics, no medications or change. Patient reports that he has had no nausea or vomiting or abdominal pain since his discharge. Patient is alert and oriented 3 while in the emergency room, patient with no complaints. Patient denies any headaches or dizziness, denies any chest pain or shortness of breath, any abdominal pain, nausea or vomiting. PFSH Past Medical History Hx Anticoagulant Therapy: Yes (XARELTO) Cancer: No Cardiovascular Problems: Yes (HTN) Cerebrovascular Accident: Yes (TIA) Diabetes: No Deep Vein Thrombosis: Yes Endocrine: No Genitourinary: No Hiatal Hernia: No Hypertension: Yes Immune Disorder: No Musculoskeletal: No Neurologic: Yes Parkinson's Disease: Yes Psychiatric: No Reproductive: No Respiratory: No Thyroid Disease: No Tetanus Vaccination: > 5 Years Past Surgical History Abdominal Surgery: Yes (PARTIAL GASTRECTOMY / HERNIA REPAIR) Other Surgery: Yes Social History Alcohol Use: No (BEER DAILY) Tobacco Use: No (QUIT 30 YEARS) Substance Use: No Allergies-Medications (Allergen,Severity, Reaction): Coded Allergies: No Known Allergies (Verified , 02/07/17) Reported Meds & Prescriptions Reported Meds & Active Scripts Active Megace Liq (Megestrol Acetate) 40 Mg/Ml Susp 400 Mg PO DAILY Zofran (Ondansetron HCl) 4 Mg Tab 4 Mg PO Q8HR PRN Reported Xarelto (Rivaroxaban) 15 Mg Tab 15 Mg PO DAILY Potassium Chloride ER (Potassium Chloride) 20 Meq Tab 20 Meq PO DAILY Folic Acid 400 Mcg Tab 400 Mcg PO DAILY Vitamin B-12 (Cyanocobalamin) 1,000 Mcg Tab 1,000 Mcg PO DAILY Vitamin D3 (Cholecalciferol) 1,000 Unit Chew 2,000 Units PO DAILY Carbidopa-Levodopa 25-100 Mg Tab 1 Tab PO Q8HR Atenolol 100 Mg Tab 100 Mg PO DAILY Amlodipine (Amlodipine Besylate) 5 Mg Tab 5 Mg PO DAILY Review of Systems General / Constitutional: No: Fever Eyes: No: Visual changes HENT: No: Headaches Cardiovascular: No: Chest Pain or Discomfort Respiratory: No: Shortness of Breath Gastrointestinal: No: Abdominal Pain Genitourinary: No: Dysuria Musculoskeletal: No: Pain Skin: No Rash Neurologic: Positive: Change in Mentation, No: Weakness Psychiatric: No: Depression Endocrine: No: Polydipsia Hematologic/Lymphatic: No: Easy Bruising Physical Exam Narrative GENERAL: NAD,Nontoxic SKIN: Warm and dry. HEAD: Atraumatic. Normocephalic. EYES: Pupils equal and round. No scleral icterus. No injection or drainage. ENT: No nasal bleeding or discharge. Mucous membranes pink and moist. NECK: Trachea midline. No JVD. CARDIOVASCULAR: Regular rate and rhythm. No murmur appreciated. RESPIRATORY: No accessory muscle use. Clear to auscultation. Breath sounds equal bilaterally. GASTROINTESTINAL: Abdomen soft, non-tender, nondistended. Hepatic and splenic margins not palpable. MUSCULOSKELETAL: No obvious deformities. No clubbing. No cyanosis. No edema. NEUROLOGICAL: Awake and alert. No obvious cranial nerve deficits. Motor grossly within normal limits. Normal speech. PSYCHIATRIC: Appropriate mood and affect; insight and judgment normal. Data Data Last Documented VS Vital Signs Date Time Temp Pulse Resp B/P Pulse Ox O2 Delivery O2 Flow Rate FiO2 02/08/17 01:00 53 16 165/91 95 Room Air Orders Electrocardiogram (02/07/17 22:30) Ammonia (02/07/17 22:30) Complete Blood Count With Diff (02/07/17 22:30) Comprehensive Metabolic Panel (02/07/17 22:30) Creatine Kinase (Cpk) (02/07/17 22:30) Prothrombin Time / Inr (Pt) (02/07/17 22:30) Act Partial Throm Time (Ptt) (02/07/17 22:30) Troponin I (02/07/17 22:30) Thyroid Stimulating Hormone (02/07/17 22:30) Lactic Acid Sepsis Protocol (02/07/17 22:30) Urinalysis - C+S If Indicated (02/07/17 22:30) Chest, Single Ap (02/07/17 22:30) Ct Brain W/O Iv Contrast(Rout) (02/07/17 22:30) Ecg Monitoring (02/07/17 22:30) Iv Access Insert/Monitor (02/07/17 22:30) Sodium Chloride 0.9% Flush (Ns Flush) (02/07/17 22:30) Sodium Chlor 0.9% 1000 Ml Inj (Ns 1000 M (02/07/17 22:30) Drug Screen, Random Urine (02/07/17 22:30) Urine Culture (02/08/17 01:30) Place In Observation (02/08/17 ) Vital Signs (Adult) Q4H (02/08/17 03:09) Activity Oob With Assistance (02/08/17 03:09) Dross Puller / Telemetry .CONTINUOUS (02/08/17 03:09) Diet Regular Basic (02/08/17 Breakfast) Sodium Chloride 0.9% Flush (Ns Flush) (02/08/17 03:15) Sodium Chloride 0.9% Flush (Ns Flush) (02/08/17 09:00) Acetaminophen (Tylenol) (02/08/17 03:15) Ondansetron Inj (Zofran Inj) (02/08/17 03:15) Magnesium Hydroxide Liq (Milk Of Magnesi (02/08/17 03:15) Basic Metabolic Panel (Bmp) (02/08/17 06:00) Complete Blood Count With Diff (02/08/17 06:00) Naloxone Inj (Narcan Inj) (02/08/17 03:15) Labs Laboratory Tests Test 02/07/17 02/08/17 02/08/17 23:25 00:35 01:30 Prothrombin Time 15.6 SEC Prothromb Time International 1.4 RATIO Ratio Activated Partial 42.2 SEC Thromboplast Time White Blood Count 6.1 TH/MM3 Red Blood Count 5.49 MIL/MM3 Hemoglobin 18.1 GM/DL Hematocrit 52.5 % Mean Corpuscular Volume 95.7 FL Mean Corpuscular Hemoglobin 32.9 PG Mean Corpuscular Hemoglobin 34.4 % Concent Red Cell Distribution Width 16.2 % Platelet Count 114 TH/MM3 Mean Platelet Volume 8.9 FL Neutrophils (%) (Auto) 64.2 % Lymphocytes (%) (Auto) 17.7 % Monocytes (%) (Auto) 11.9 % Eosinophils (%) (Auto) 4.8 % Basophils (%) (Auto) 1.4 % Neutrophils # (Auto) 3.9 TH/MM3 Lymphocytes # (Auto) 1.1 TH/MM3 Monocytes # (Auto) 0.7 TH/MM3 Eosinophils # (Auto) 0.3 TH/MM3 Basophils # (Auto) 0.1 TH/MM3 CBC Comment DIFF FINAL Differential Comment Sodium Level 130 MEQ/L Potassium Level 4.1 MEQ/L Chloride Level 95 MEQ/L Carbon Dioxide Level 24.3 MEQ/L Anion Gap 11 MEQ/L Blood Urea Nitrogen 11 MG/DL Creatinine 1.17 MG/DL Estimat Glomerular Filtration 61 ML/MIN Rate Random Glucose 74 MG/DL Lactic Acid Level 1.7 mmol/L Calcium Level 8.5 MG/DL Total Bilirubin 2.1 MG/DL Aspartate Amino Transf 93 U/L (AST/SGOT) Alanine Aminotransferase 22 U/L (ALT/SGPT) Alkaline Phosphatase 101 U/L Ammonia 28 MCMOL/L Total Creatine Kinase 109 U/L Troponin I LESS THAN 0.02 NG/ML Total Protein 7.4 GM/DL Albumin 3.0 GM/DL Thyroid Stimulating Hormone 5.580 uIU/ML 3rd Gen Urine Color YELLOW Urine Turbidity CLEAR Urine pH 5.5 Urine Specific [place] 1.017 Urine Protein TRACE mg/dL Urine Glucose (UA) NEG mg/dL Urine Ketones TRACE mg/dL Urine Occult Blood NEG Urine Nitrite NEG Urine Bilirubin NEG Urine Urobilinogen LESS THAN 2.0 MG/DL Urine Leukocyte Esterase NEG Urine RBC LESS THAN 1 /hpf Urine WBC 1 /hpf Urine Squamous Epithelial <1 /hpf Cells Urine Bacteria RARE /hpf Urine Hyaline Casts 6 /lpf Urine Mucus FEW /lpf Microscopic Urinalysis Comment CATH-CULTURE IND Urine Opiates Screen NEG Urine Barbiturates Screen NEG Urine Amphetamines Screen NEG Urine Benzodiazepines Screen NEG Urine Cocaine Screen NEG Urine Cannabinoids Screen NEG MDM Medical Decision Making Medical Screen Exam Complete: Yes Emergency Medical Condition: Yes Interpretation(s) Vital Signs Date Time Temp Pulse Resp B/P Pulse Ox O2 Delivery O2 Flow Rate FiO2 02/07/17 20:56 58 16 126/81 97 Differential Diagnosis Intracranial hemorrhage, electrolyte abnormality, UTI, lactic acidosis, dehydration, acute delirium Narrative Course Patient is a 72-year-old male who presents to emergency room with his daughter for evaluation of altered mental status. As per daughter, patient was discharged from hospital yesterday after he was admitted for intractable nausea and vomiting as well as dehydration with lactic acidosis. Patient has had complete resolutions of symptoms after his discharge, reports that he has been having increased hallucinations since this morning. Reports that these hallucinations are atypical for him. Patient is alert and oriented [address] head ordered. Labs as well as UA ordered. Plan to monitor patient. CBC & BMP Diagram 02/08/17 00:[address] 02/07/[id number] Signed Impressions: Service Date/Time: Wednesday, February 08, 2017 00:00 - CONCLUSION: 1. No acute intracranial findings. 2. Ethmoid and maxillary sinus disease with evidence of acute sinusitis of the left maxillary sinus. Jorge Galvan MD Chest X-Ray 02/07/[id number] Signed Impressions: Service Date/Time: Tuesday, February 07, 2017 22:41 - CONCLUSION: No acute disease. Varinder Gastelum MD All labs and all studies reviewed with patient and his daughter in detail. Patient did receive 1 L of IV fluids. I did offer patient admission for acute delirium, patient refuses to be admitted to the hospital. Patient's daughter will assume responsibility for patient, he will stay with her at home, I did encourage increase fluids for patient. Discussed signs and symptoms of when to have patient return to the emergency room. Patient will return to emergency room as needed. Patient will follow-up with his primary care doctor as well as psychiatry as outpatient. Diagnosis Primary Impression: Hallucinations Additional Impression: Dehydration Patient Instructions: General Instructions Additional Instructions: Please provide patient with a copy of his labwork at discharge Please follow-up with your primary care doctor as soon as possible Return to emergency room as needed Disposition: 01 DISCHARGE HOME Condition: Stable Yodit Bradley DO Feb 07, 2017 23:33
[2017-02-07 23:50] LABS: APTT (PATIENT) 42.2 SEC (24.3-30.1); INTERNATIONAL NORMALIZED RATIO 1.4 RATIO; PROTHROMBIN TIME - PATIENT 15.6 SEC (9.8-11.6)
--- NOTE | 2017-02-08 00:36 | RADRPT ---
EXAM DATE/TIME: 02/08/2017 00:00 [facility] COMPARISON: No previous studies available for comparison. INDICATIONS : Altered mental status, confused and weak. RADIATION DOSE: 39.52 CTDIvol (mGy) MEDICAL HISTORY : Parkinson's. Hypertension. Stroke. SURGICAL HISTORY : None. ENCOUNTER: Initial ACUITY: 1 day PAIN SCALE: 0/10 LOCATION: cranial TECHNIQUE: Multiple contiguous axial images were obtained of the head. Using automated exposure control and adj ustment of the mA and/or kV according to patient size, radiation dose was kept as low as reasonably a chievable to obtain optimal diagnostic quality images. FINDINGS: CEREBRUM: The ventricles are normal for age. No evidence of midline shift, mass lesion, hemorrhage or acute in farction. No extra-axial fluid collections are seen. POSTERIOR FOSSA: The cerebellum and brainstem are intact. The 4th ventricle is midline. The cerebellopontine angle i s unremarkable. EXTRACRANIAL: Partial opacification of the maxillary and ethmoid sinuses. Moderate-sized air-fluid level in left ma xillary sinus. SKULL: The calvaria is intact. No evidence of skull fracture. CONCLUSION: 1. No acute intracranial findings. 2. Ethmoid and maxillary sinus disease with evidence of acute sinusitis of the left maxillary sinus. Jorge Galvan MD on February 08, 2017 at 0:33 Board Certified Radiologist. This report was verified electronically.
[2017-02-08 00:55] LABS: AUTOMATED NEUTROPHIL # 3.9 TH/MM3 (1.8-7.7); BASOPHIL # 0.1 TH/MM3 (0-0.2); BASOPHIL % 1.4 % (0.0-2.0); EOSINOPHIL # 0.3 TH/MM3 (0-0.4); EOSINOPHIL % 4.8 % (0.0-4.0); HEMATOCRIT 52.5 % (39.0-51.0); HEMO FLAGS DIFF FINAL; LYMPH % 17.7 % (9.0-44.0); LYMPHOCYTE # 1.1 TH/MM3 (1.0-4.8); MEAN CELL VOLUME 95.7 FL (80.0-100.0); MEAN CORPUSCULAR HEMOGLOBIN 32.9 PG (27.0-34.0); MEAN CORPUSCULAR HGB CONC 34.4 % (32.0-36.0); MONO % 11.9 % (0.0-8.0); NEUT % 64.2 % (16.0-70.0); PLATELET COUNT 114 TH/MM3 (150-450); RED BLOOD COUNT 5.49 MIL/MM3 (4.50-5.90); RED CELL DISTRIBUTION WIDTH 16.2 % (11.6-17.2); WHITE BLOOD COUNT 6.1 TH/MM3 (4.0-11.0)
[2017-02-08 01:00] VITALS: BP 165/91; PULSE 53; RESP 16; O2SAT 95
[2017-02-08 01:30] LABS: ALKALINE PHOSPHATASE 101 U/L (45-117); ALT (GPT) 22 U/L (12-78); ANION GAP 11 MEQ/L (5-15); AST (GOT) 93 U/L (15-37); BICARBONATE 24.3 MEQ/L (21.0-32.0); BLOOD UREA NITROGEN 11 MG/DL (7-18); CHLORIDE 95 MEQ/L (98-107); CREATINE KINASE 109 U/L (39-308); GLOMERULAR FILTRATION RATE 61 ML/MIN (>89); SODIUM (NA) 130 MEQ/L (136-145); TOTAL BILIRUBIN ADULT 2.1 MG/DL (0.2-1.0)
[2017-02-08 01:31] LABS: POTASSIUM 4.1 MEQ/L (3.5-5.1)
[2017-02-08 01:49] LABS: AMPHETAMINE, URINE NEG (NEG); BARBITURATES, URINE NEG (NEG); COCAINE, URINE NEG (NEG)
[2017-02-08 01:51] LABS: BACTERIA, URINE RARE /hpf; BLOOD, URINE NEG (NEG); COMMENT (UR) CATH-CULTURE IND; CULTURE IF INDICATED CATH CULTURE IND; GLUCOSE,URINE NEG (NEG); HYALINE CAST, URINE 6 /lpf (RARE); KETONE, URINE TRACE mg/dL (NEG); MUCUS URINE FEW /lpf (OCC); NITRITE,URINE NEG (NEG); PH, URINE 5.5 (5.0-8.5); SQUAMOUS EPITHELIAL CELL URINE <1 /hpf (0-5); URINE COLOR YELLOW (YELLW/STRAW)
[2017-02-08] MEDS ORDERED: MAGNESIUM HYDROXIDE SUSP 30 ML CUP PO PRN (03:15)
[2017-02-08] MEDS ORDERED: ACETAMINOPHEN 325 MG TAB PO PRN (03:15)
[2017-02-08] MEDS ORDERED: ONDANSETRON HCL 4 MG/2 ML VIAL IVP PRN (03:15)
[2017-02-08] MEDS ORDERED: SODIUM CHLORIDE 0.9% FLUSH 5 ML FLUSH FLUSH PRN (03:15)
[2017-02-08] MEDS ORDERED: NALOXONE HCL 0.4 MG/ML AMP IV PRN (03:15)
[2017-02-08 03:52] VITALS: BP 180/82
[2017-02-08] MEDS ORDERED: SODIUM CHLORIDE 0.9% FLUSH 5 ML FLUSH FLUSH SCH (09:00)
--- NOTE | 2017-02-08 19:54 | EKG ---
Date Performed: 02/07/2017 Time Performed: 23:35:32 PTAGE: 72 years EKG: SINUS BRADYCARDIA WITH OCCASIONAL SUPRAVENTRICULAR PREMATURE COMPLEXES LOW QRS VOLTAGE IN E XTREMITY LEADS BORDERLINE ECG PREVIOUS TRACING : 02/04/2017 00.08 Compared to the previous tracing rate slower DOCTOR: Cristin Silveira Interpretating Date/Time 02/08/2017 19:53:56
== END 2017-02-08 04:00 | disposition home or self-care (01) ==
LOC: NEPE 20:52
DX: R44.3 Hallucinations, unspecified (principal); E86.0 Dehydration; Z86.73 Personal history of transient ischemic attack (TIA), and cerebral infarction without residual deficits; Z86.718 Personal history of other venous thrombosis and embolism; I10 Essential (primary) hypertension; G20 Parkinson's disease; Z79.01 Long term (current) use of anticoagulants; Z87.891 Personal history of nicotine dependence; R00.1 Bradycardia, unspecified; R41.82 Altered mental status, unspecified
CPT/HCPCS: 70450; 71010; 80053; 80307; 81001; 82140; 82550; 83605; 84443; 84484; 85025; 85610; 85730; 87086; 93005; 96360; 99285; J7030